=== PATIENT | female | born 1985 | race Caucasian/White ===

== ENCOUNTER 2020-01-01 12:02 | Inpatient (IN) | payer OTHER, SELFPAY ==
[2020-01-01 12:42] LABS: #Basophils 0.1 thou/uL (0.0-0.2); #Eosinphils 0.2 thou/uL (0.0-0.7); #Lymphocytes 3.3 thou/uL (1.20-3.40); #Monocytes 0.6 thou/uL (0.11-0.59); #Neutrophils 7.9 thou/uL (1.40-6.50); %Basophils 0.6 % (0.0-1.0); %Eosinophils 1.3 % (0.0-10.0); %Lymphocytes 27.4 % (21.0-51.0); %Monocytes 5.2 % (0.0-10.0); %Neutrophils 65.5 % (42.0-75.0); Hemoglobin 14.2 g/dL (12.0-16.0); Mean Corpuscular HGB CONC 32.2 g/dL (32.0-36.0); Mean Corpuscular Hemoglobin 30.5 pg (27.0-31.0); Mean Corpuscular Volume 94.6 fL (78.0-98.0); Platelet Count 324 thou/uL (130-400); RBC Distribution Width 11.8 % (11.5-14.5); Red Blood Cell (RBC) Count 4.68 mill/uL (4.20-5.40)
[2020-01-01 12:48] LABS: BHCG - Serum Negative (NEGATIVE); Pregs Control Background? CLEAR/WHITE (CLR/WHITE); Pregs Control Bar Appear? YES (CONTROL BAR)
[2020-01-01 13:10] LABS: ALT (SGPT) 31 U/L (8-55); AST (SGOT) 20 U/L (5-34); Albumin 4.4 g/dL (3.5-5.0); Alkaline Phosphatase 88 U/L (40-110); Anion Gap 12 mmol/L (10-20); BUN (Urea Nitrogen) 11 mg/dL (7.0-18.7); Bilirubin, Total 0.5 mg/dL (0.2-1.2); Calc. Creatinine Clearance 0 mL/min (70-130); Calcium 9.4 mg/dL (7.8-10.44); Carbon Dioxide 26 mmol/L (22-29); Chloride 102 mmol/L (98-107); Estimated GFR-MDRD 73; Globulin 3.2 g/dL (2.4-3.5); Glucose 185 mg/dL (70-105); Lipase 28 U/L (8-78); Potassium 4.4 mmol/L (3.5-5.1); Protein, Total 7.6 g/dL (6.0-8.3); Sodium 136 mmol/L (136-145)
[2020-01-01] MEDS ORDERED: Fentanyl 100 MCG/2 ML VIAL ONE (14:41)
[2020-01-01] MEDS ORDERED: Ondansetron PF 4 MG/2 ML Vial ONE (14:41)
[2020-01-01] MEDS ORDERED: Morphine 4 MG/ML VIAL ONE ×2 (15:27→17:27)
[2020-01-01] MEDS ORDERED: Piperacillin/Tazobactam 4.5 GM VIAL ONE (15:53)
--- NOTE | 2020-01-01 15:57 | CT ---
CT Abdomen Pelvis WO Con: 01/01/2020 3:51 PM HISTORY: Abdominal pain and diverticulitis COMPARISON: 12/31/2019 TECHNIQUE: Multiple contiguous axial images were obtained and a CT of the abdomen and pelvis without IV contrast . Coronal and sagittal reformats were performed. FINDINGS: This examination is limited for the evaluation of solid organs and vascular structures due to the lac k of intravenous contrast. Lower Chest: within normal limits. Abdomen: Liver: Diffuse fatty infiltration Bile Ducts: Normal caliber. Gallbladder: Removed Pancreas: within normal limits. Spleen: within normal limits. Adrenals: within normal limits. Kidneys: within normal limits. Pelvis: Reproductive Organs: Status post hysterectomy. Ureters: within normal limits. Bladder: within normal limits. Bowel: Normal caliber. Scattered diverticula are seen in the colon. An anastomotic staple line is see n in the sigmoid colon. Mesenteric Lymph Nodes: No enlarged mesenteric lymph nodes. Peritoneum: No ascites or free air, no fluid collection. Vessels: Normal caliber aorta Retroperitoneum: within normal limits. Abdominal Wall: within normal limits. Bones: Unremarkable. IMPRESSION: 1. Stable diverticulosis without evidence of acute diverticulitis. No change has occurred since the e xam from yesterday. 2. Fatty liver
[2020-01-01 17:44] LABS: Bilirubin Negative (Negative); Blood, Urine Negative (Negative); Clarity Clear (Clear); Glucose, Urine (Dipstick) 500 mg/dL (Negative); Ketone, Urine Negative (Negative); Leukocyte Negative Leu/uL (Negative); Nitrite Negative (Negative); Protein, Urine (Dipstick) Negative (Neg-Trace); Specific Gravity, Urine 1.022 (1.002-1.036); Urobilinogen Normal mg/dL (Less than 2)
[2020-01-01] MEDS ORDERED: Ondansetron PF 4 MG/2 ML Vial IVP PRN (18:08)
[2020-01-01] MEDS ORDERED: Acetaminophen 325 MG TAB PO PRN (18:08)
--- NOTE | 2020-01-01 18:35 | PDOC.HHP ---
Hospitalist HPI - History of Present Illness abdominal pain History of Present Illness: Mrs. Guadarrama is a 34 year-old female with a PMHx of T2DM on metformin, chronic diverticulitis s/p bowel resection in 2017, who presented to the ED on 01/01/20 with acute abdominal pain. Pain started 5 days ago and is described as sharp and crampy, mostly localized to the LLQ. Pain is associated with diarrhea and bloody stools. Pt reports lots of mucus and intermittent streaks of dark maroon blood in her stool which she feels is more prominent when her abdominal pain is worse. Pt presented to [place] [facility] yesterday where she was discharged on cipro/flagyl, but her abdominal pain acutely worsened overnight and so she presented to [facility]. Pt denies N/V. Denies dysuria. Denies CP, SOB, or palpitations. Denies dizziness or lightheadedness. Pt states she has a long history of abdominal pain and recurrent bouts of diverticulitis with approximately 6-7 flare ups per yeat over the past 10 years. Pt recently (10 days ago) moved from [place] where she follows with a surgeon and GI for this. Her surgeons in [place] were planning on doing a colostomy in the upcoming months. In ED workup included a CT abdomen pelvis which showed diffuse diverticulosis without diverticulitis stable from scan performed at [facility] the prior day. WBC 12.0, H/H 14.2/44, BUN 11/0.88. Na 136, K 4.4. Lipase 28, bhcg negative. Pt received Zosyn 4.5 mg, morphine, zofran, and 1L NS in the ED. Vital signs were 124/75, 75, 14, 100% on RA. Hospitalist ROS - Review of Systems Constitutional: denies: fever, chills, sweats, weakness, malaise, other Eyes: denies: pain, vision change, conjunctivae inflammation, eyelid inflammation, redness, other ENT: denies: ear pain, ear discharge, nose pain, nose discharge, nose congestion, mouth pain, mouth swelling, throat pain, throat swelling, other Respiratory: denies: cough, dry, shortness of breath, hemoptysis, SOB with excertion, pleuritic pain, sputum, wheezing, other Cardiovascular: denies: chest pain, palpitations, orthopnea, paroxysmal noc. dyspnea, edema, light headedness, other Gastrointestinal: reports: abdominal pain, diarrhea, hematochezia. denies: nausea, vomiting, constipation, melena, other Genitourinary: denies: dysuria, frequency, incontinence, hematuria, retention, other Musculoskeletal: denies: neck pain, shoulder pain, arm pain, back pain, hand pain, leg pain, foot pain, other Skin: denies: rash, lesions, jeff, bruising, other Neurological: denies: weakness, numbness, incoordination, change in speech, confusion, seizures, other - Medication Medications: Home medications include: 1. Metformin 500 mg BID Patient is SEVERELY allergic to Iodine and IV contrast, which caused a cardiac arrest in the past. Hospitalist History - Past Medical History Source: patient Gastrointestinal: reports: Diverticulosis Endocrine: reports: Diabetes - Past Surgical History Other Surgical History: Colon resection in 2017 - Family History Family History: reports: no pertinent history - Social History Smoking Status: Former smoker Tobacco Type: cigarettes Alcohol: reports: Rare Drugs: reports: none Living Situation: With Family Activity level: independent ambulation - Exam General Appearance: NAD, awake alert Eye: PERRL, anicteric sclera ENT: normocephalic atraumatic, no oropharyngeal lesions, moist mucosa Neck: supple, symmetric, no JVD, no thyromegaly, no lymphadenopathy, no carotid bruit Heart: RRR, no murmur, no gallops, no rubs, normal peripheral pulses Respiratory: CTAB, no wheezes, no rales, no ronchi, normal chest expansion, no tachypnea, normal percussion Gastrointestinal: soft, non-distended, no palpable masses, no guarding, no rigidity, tender to palpation Gastrointestinal - other findings: hyperactive bowel sounds Extremities: no cyanosis, no clubbing, no edema Skin: normal turgor, no lesions, no rashes Neurological: cranial nerve grossly intact, normal sensation to touch, no weakness, no focal deficits, no new deficit Musculoskeletal: normal tone, normal strength, no muscle wasting Psychiatric: normal affect, normal behavior, A&O x 3 Hospitalist Results - Labs Result Diagrams: 01/01/20 12:32 01/01/20 12:32 Lab results: WBC 12.0 thou/uL (4.8-10.8) H 01/01/20 12:32 Hgb 14.2 g/dL (12.0-16.0) 01/01/20 12:32 Hct 44.2 % (36.0-47.0) 01/01/20 12:32 MCV 94.6 fL (78.0-98.0) 01/01/20 12:32 Plt Count 324 thou/uL (130-400) 01/01/20 12:32 Neutrophils % 65.5 % (42.0-75.0) 01/01/20 12:32 Sodium 136 mmol/L (136-145) 01/01/20 12:32 Potassium 4.4 mmol/L (3.5-5.1) 01/01/20 12:32 Chloride 102 mmol/L (98-107) 01/01/20 12:32 Carbon Dioxide 26 mmol/L (22-29) 01/01/20 12:32 BUN 11 mg/dL (7.0-18.7) 01/01/20 12:32 Creatinine 0.88 mg/dL (0.6-1.1) 01/01/20 12:32 Glucose 185 mg/dL (70-105) H 01/01/20 12:32 Calcium 9.4 mg/dL (7.8-10.44) 01/01/20 12:32 Total Bilirubin 0.5 mg/dL (0.2-1.2) 01/01/20 12:32 AST 20 U/L (5-34) 01/01/20 12:32 ALT 31 U/L (8-55) 01/01/20 12:32 Alkaline Phosphatase 88 U/L (40-110) 01/01/20 12:32 Serum Total Protein 7.6 g/dL (6.0-8.3) 01/01/20 12:32 Albumin 4.4 g/dL (3.5-5.0) 01/01/20 12:32 Lipase 28 U/L (8-78) 01/01/20 12:32 Urine Ketones Negative mg/dL (Negative) 01/01/20 16:31 Urine Blood Negative (Negative) 01/01/20 16:31 Urine Nitrite Negative (Negative) 01/01/20 16:31 Ur Leukocyte Esterase Negative Dania/uL (Negative) 01/01/20 16:31 Hospitalist H&P A/P - Problem (1) Diverticulitis Code(s): K57.92 - DVTRCLI OF INTEST, PART UNSP, W/O PERF OR ABSCESS W/O BLEED Status: Acute (2) Type 2 diabetes mellitus Status: Acute (3) Bloody stool Code(s): K92.1 - MELENA Status: Acute - Plan Plan: Diverticulitis: Mrs. Guadarrama is a 34F with PMHx of T2DM, chronic diverticulitis s/p resection in 2017 who presented with 5 days of worsening LLQ pain associated with diarrhea and bloody stools. Abdomen TTP, no guarding. CT abdomen showed diffuse diverticulosis, no signs of abscess, perforation, or obstruction. WBC 12.0, lipase 28, BUN/Cr 11/0.88. Pt received one dose of zosyn in the ED. PLAN: -IV flagyl 500 mg TID, IV ceftriaxone 1 g daily -Clear liquid diet -Stool studies -GI consult -Pain control with morphine Bloody stools: Abdominal pain associated with cramping and dark red stools. H/H stable at 14.2/44.2. Pt denies dizziness/lightheadedness. Pt has been previously w/u for IBD in [place] which she reports was negative. PLAN: -Stool studies, fecal lactoferrin -Trend H/H -Continue to monitor Type 2 Diabetes Mellitus: Hx of T2DM on home metformin. Will hold home metformin as pt is NPO. PLAN: -Hold home metformin -Q6hr glucose checks DVT Prophylaxis: SCDs, encourage ambulation FULL CODE - Patient has designated her , Fredo Guadarrama as her medical decision maker Case discussed with attending physician, Dr. bAdul.
[2020-01-01] MEDS ORDERED: Morphine 2 MG/ML VIAL SLOW IVP PRN (19:48)
[2020-01-01 21:05] VITALS: BMI 51.9
[2020-01-01] MEDS ORDERED: Dextrose 50% Abboject 50 ML SYRINGE SLOW IVP PRN (21:08)
[2020-01-01] MEDS ORDERED: Dextrose 5% in Water 1,000 ML IV PRN (21:08)
[2020-01-01] MEDS: metroNIDAZOLE 500 MG in Premix Bag 1 BAG IVPB SCH (21:09)
[2020-01-01 21:30] LABS: Lactic Acid 2.3 mmol/L (0.5-2.2)
[2020-01-01] MEDS: Morphine 4 MG/ML VIAL SLOW IVP PRN (23:51)
[2020-01-02] MEDS: Morphine 4 MG/ML VIAL SLOW IVP PRN ×5 (03:46→20:33)
[2020-01-02] MEDS: metroNIDAZOLE 500 MG in Premix Bag 1 BAG IVPB SCH ×3 (05:14→22:28)
[2020-01-02 06:07] LABS: #Basophils 0.1 thou/uL (0.0-0.2); #Eosinphils 0.2 thou/uL (0.0-0.7); #Lymphocytes 3.7 thou/uL (1.20-3.40); #Monocytes 0.7 thou/uL (0.11-0.59); %Basophils 0.6 % (0.0-1.0); %Eosinophils 1.7 % (0.0-10.0); %Lymphocytes 34.8 % (21.0-51.0); %Monocytes 6.8 % (0.0-10.0); %Neutrophils 56.2 % (42.0-75.0); Hemoglobin 12.3 g/dL (12.0-16.0); Mean Corpuscular HGB CONC 31.6 g/dL (32.0-36.0); Mean Corpuscular Volume 98.3 fL (78.0-98.0); Mean Platelet Volume 8.1 fL (7.4-10.4); Platelet Count 258 thou/uL (130-400); RBC Distribution Width 11.9 % (11.5-14.5); Red Blood Cell (RBC) Count 3.97 mill/uL (4.20-5.40); White Blood Cell (WBC) Count 10.6 thou/uL (4.8-10.8)
[2020-01-02] MEDS: cefTRIAXone\\ROCEPHIN 1 GM in Sodium Chloride 0.9% 100 ML IVPB SCH (06:21)
[2020-01-02 06:33] LABS: Anion Gap 15 mmol/L (10-20); BUN (Urea Nitrogen) 10 mg/dL (7.0-18.7); Calc. Creatinine Clearance 213 mL/min (70-130); Calcium 8.1 mg/dL (7.8-10.44); Carbon Dioxide 20 mmol/L (22-29); Chloride 107 mmol/L (98-107); Estimated GFR-MDRD 82; Glucose 122 mg/dL (70-105); Potassium 4.4 mmol/L (3.5-5.1); Sodium 138 mmol/L (136-145)
[2020-01-02] MEDS ORDERED: cefTRIAXone Sodium 1,000 MG in Syringe 0 ML IVPB SCH (09:00)
[2020-01-02 12:46] LABS: SARS-CoV-2 MS2 Positive; SARS-CoV-2 N Gene Negative; SARS-CoV-2 S Gene Negative; SARS-CoV-2 by NAA Not Detected (NotDetected); SARS-CoV-2 orf1ab Negative
--- NOTE | 2020-01-02 15:04 | PDOC.HOSPP ---
- Subjective Encounter Date: 01/02/20 Encounter Time: 09:00 Subjective: The patient states she still has abdominal pain in the LLQ. She states it is about the same. Typically when she has diverticulitis attacks, she is in the hospital for about 7 days before it subsides . She had diarrhea yesterday but had no BM today. She said her stool smelled like "raw sewage." She states she had some blood in her stools. She denies nausea or vomiting. She did not eat outside recently. She has no family history of IBD. She does not take NSAIDS or aspirin. SHe has had history of bowel resection. One surgeon three years ago recommended a colostomy but she refused The patient recently moved from [place], has no doctor here yet. - Objective Vital Signs & Weight: Vital Signs (12 hours) Temp Pulse Resp BP Pulse Ox 01/02/20 11:16 97.9 F 80 20 122/82 95 01/02/20 07:15 97.9 F 74 18 121/74 98 01/02/20 04:15 97.8 F 75 16 107/70 94 L Weight Weight 302 lb 9.6 oz Result Diagrams: 01/02/20 05:54 01/02/20 05:54 Additional Labs: Accuchecks 01/02/20 01/02/20 01/01/20 11:25 05:19 22:16 POC Glucose 148 H 112 H 146 H Hospitalist ROS - Medication Medications: Active Medications Generic Name Dose Route Start Last Admin Trade Name Freq PRN Reason Stop Dose Admin Metronidazole 500 mg/ Device 100 mls @ 100 mls/hr 01/01/20 22:00 01/02/20 14:43 IVPB 100 mls Q8HR QUAN Administration Ceftriaxone Sodium 1 gm/ 100 mls @ 200 mls/hr 01/02/20 06:00 01/02/20 06:21 Sodium Chloride IVPB 100 mls Q24HR QUAN Administration Morphine Sulfate 2 mg 01/01/20 19:48 01/01/20 19:56 Morphine 2 Mg/Ml Vial SLOW IVP 2 mg Q4H PRN Administration Moderate to Severe Pain (6-10) Morphine Sulfate 4 mg 01/01/20 19:34 01/02/20 12:15 Morphine 4 Mg/Ml Vial SLOW IVP 4 mg Q4H PRN Administration Severe Pain (7-10) - Exam General Appearance: NAD, awake alert Eye: PERRL, anicteric sclera ENT: normocephalic atraumatic, no oropharyngeal lesions Neck: no JVD Heart: RRR, no murmur, no gallops, no rubs Respiratory: CTAB, no wheezes, no rales, no ronchi Gastrointestinal: soft, non-tender, non-distended, normal bowel sounds Extremities: no cyanosis, no clubbing, no edema Skin: normal turgor, no lesions, no rashes Hosp A/P - Plan CT abdomen: stable diverticulosis without diverticulitis. Fatty liver This is a 34 year old female who presented with diverticulosis and lower GI bleed #Abdominal pain with history of diverticulosis #Lower GI bleed #Diarrhea - patient had CT abdomen which showed no acute diverticulitis. SHe was placed on IV ceftriaxone and flagyl - she has had some bloody stools, C diff pending - GI has been consulted, transition to clear liquid diet and plan for colonoscopy tomorrow #Fatty liver - patient has lost 30 pounds in past three months - avoid alcohol and monitor periodically as outpatient #Type I diabetes - insulin sliding scale
[2020-01-02] MEDS ORDERED: Dextrose 5% in Water 1,000 ML IV PRN (16:03)
[2020-01-02] MEDS ORDERED: Dextrose 50% Abboject 50 ML SYRINGE SLOW IVP PRN (16:03)
[2020-01-02] MEDS: HumaLOG 300 UNITS/3 ML VIAL SC PRN (16:21)
[2020-01-02] MEDS ORDERED: GoLYTELY 4,000 ml Bottle PO SCH (17:00)
[2020-01-03] MEDS: Morphine 4 MG/ML VIAL SLOW IVP PRN ×6 (00:47→21:55)
[2020-01-03] MEDS: cefTRIAXone\\ROCEPHIN 1 GM in Sodium Chloride 0.9% 100 ML IVPB SCH (05:56)
[2020-01-03] MEDS: metroNIDAZOLE 500 MG in Premix Bag 1 BAG IVPB SCH ×3 (07:14→21:54)
--- NOTE | 2020-01-03 07:36 | CON ---
DATE OF CONSULTATION: 01/02/2020 REASON FOR CONSULTATION: Abdominal pain, diarrhea, hematochezia, and passing blood-stained mucus per rectum. HISTORY OF PRESENT ILLNESS: Ms. Mignon Guadarrama is 34-year-old female, who moved to [place] approximately 11 days ago from [place]. Apparently, her in-laws live in [place]. The patient developed abdominal pain approximately 6 days ago. The pain is across lower abdomen predominantly in left lower quadrant. She had no fever or chills. She also describes diarrhea off and on, some blood-stained mucus per rectum. The patient has history of colon resection in 2017 for recurrent diverticulitis. The patient tells me she has had at least 6-7 episodes of diverticulitis every year. She saw a surgeon and plan is being made to repeat surgery and removal of part of the colon. The plan was to have surgery sometime after the holidays. The patient was doing well until about 6 days ago and developed abdominal pain. She went to the ER to [facility] and was found to have what appears to be evidence of diverticulitis. She was sent home on some antibiotic, but she came back to the ER because of some abdominal pain. She was hospitalized because of above reasons. The patient tells me she has had some rectal bleeding and off and on diarrhea. She also has passed some blood-stained mucus per rectum. Her last colonoscopy did not reveal any colitis as per the patient. This was done just before her segmental colon resection 3 years ago. Although she has had intermittent bleeding, her blood count is basically stable. On admission, WBC was 12,000, hemoglobin 14.2, hematocrit 44.2. Today, dropped to 12.3, hematocrit 39, which is within normal limits. At the present time, she appears comfortable, in no distress. Denies any nausea, vomiting, but upper abdominal pain over the left colon. No other relevant history. ALLERGIES: IODINE. SOCIAL HISTORY: The patient is . Does not smoke or drink alcohol. MEDICAL ILLNESS: 1. Obesity. 2. Diabetes mellitus. 3. Recurrent diverticulitis with previous surgery in 2017. 4. Hysterectomy for heavy menstrual bleeding and abnormal Pap smear. 5. Appendectomy. 6. Laparoscopic cholecystectomy. FAMILY HISTORY: Mother has schizophrenia, but she has no contact with her father. No family history of any cancer, heart disease, or lung disease. MEDICATIONS: List which include: 1. Ceftriaxone. 2. Glucagon. 3. Metronidazole. 4. Morphine sulfate. 5. Zofran. 6. IV fluids. REVIEW OF SYSTEMS: CONSTITUTIONAL: No history of fever or chills. No weight loss. Had good exercise tolerance. HEAD: No chronic headache. No dizziness. EYES: No diplopia. No impaired vision. EARS: No hearing loss. NOSE: No nosebleed. THROAT: No sore throat or dysphagia. NECK: No stiffness or any limitation of movement. BREASTS: No breast masses or any lumps. No discharge from the nipple. LUNGS: No chronic coughing, hemoptysis, or dyspnea. CARDIOVASCULAR SYSTEM: No chest pain. No palpitation. No dyspnea, orthopnea, or PND. GI: As in history of present illness. : No dysuria or hematuria. MUSCULOSKELETAL: Not known. NEUROLOGIC: Not known. ENDOCRINE: Not known. HEMATOLOGICAL: Not known. PHYSICAL EXAMINATION: GENERAL: She appears comfortable. She is obese, in no distress. VITAL SIGNS: Actually very stable. Afebrile. Her pulse is 80, blood pressure 122/82. HEENT: Conjunctivae are clear. NECK: Supple. CARDIOVASCULAR SYSTEM: Normal heart sounds. LUNGS: Clear to auscultation. ABDOMEN: Soft. Abdomen is mildly protuberant, but very soft and no peritoneal signs seen. She is tender over the left lower quadrant. No rebound or guarding. Bowel sounds normal. EXTREMITIES: Reveal no edema. LABORATORY DATA: WBC 12,000 dropping to 10,600 today, hemoglobin is 14.2, hematocrit 44.2, MCV 94.6, platelet count 324,000, polymorphs 65, no bandemia, lymphocytes 27, monocytes 5. Chemistry panel; normal lytes, BUN is 10, creatinine 0.80, glucose 122, calcium 8.1. The abdominal CAT scan does show evidence of diverticulosis, but no diverticulitis seen. She also had fatty liver on CAT scan, but no inflammatory changes in the colon. CLINICAL IMPRESSION: 1. A 34-year-old female with previous colon resection for diverticulitis in 2017. Present abdominal pain and what appears to be diverticulitis but however the CAT scan shows no evidence of diverticulitis. She has a hematochezia, diarrhea, and blood-stained mucus from rectum. I am not sure she has . 2. Obesity. 3. Diabetes mellitus. 4. Previous hysterectomy complete. 5. Previous appendectomy. 6. Cholecystectomy. PLAN: 1. Clear liquid diet. 2. We will plan for colonoscopy tomorrow and make further recommendation. In the meantime, I would recommend continue antibiotics. Job ID: [id number]
[2020-01-03 08:08] LABS: ALT (SGPT) 34 U/L (8-55); AST (SGOT) 28 U/L (5-34); Albumin 3.8 g/dL (3.5-5.0); Alkaline Phosphatase 74 U/L (40-110); Anion Gap 16 mmol/L (10-20); BUN (Urea Nitrogen) 8 mg/dL (7.0-18.7); Bilirubin, Total 0.4 mg/dL (0.2-1.2); Calc. Creatinine Clearance 230 mL/min (70-130); Calcium 8.5 mg/dL (7.8-10.44); Carbon Dioxide 19 mmol/L (22-29); Chloride 107 mmol/L (98-107); Estimated GFR-MDRD 89; Globulin 2.8 g/dL (2.4-3.5); Glucose 142 mg/dL (70-105); Potassium 4.3 mmol/L (3.5-5.1); Protein, Total 6.6 g/dL (6.0-8.3); Sodium 138 mmol/L (136-145)
[2020-01-03 09:21] LABS: Mean Corpuscular HGB CONC 33.4 g/dL (32.0-36.0); Mean Corpuscular Hemoglobin 32.3 pg (27.0-31.0); Mean Corpuscular Volume 96.9 fL (78.0-98.0); Mean Platelet Volume 8.3 fL (7.4-10.4); Platelet Count 253 thou/uL (130-400); RBC Distribution Width 11.8 % (11.5-14.5); Red Blood Cell (RBC) Count 4.03 mill/uL (4.20-5.40); White Blood Cell (WBC) Count 8.3 thou/uL (4.8-10.8)
[2020-01-03] MEDS ORDERED: PROPOFOL 200 MG/20 ML VIAL ONE (10:39)
--- NOTE | 2020-01-03 11:48 | PDOC.HOSPP ---
- Subjective Encounter Date: 01/03/20 Encounter Time: 09:30 Subjective: still has abd pain in left lower quadrant no nausea is npo for colonoscopy today - Objective Vital Signs & Weight: Vital Signs (12 hours) Temp Pulse Resp BP Pulse Ox 01/03/20 08:14 97.6 F 01/03/20 07:52 75 16 104/67 96 01/03/20 04:00 97.7 F 75 20 141/91 H 97 Weight Weight 302 lb 9.6 oz I&O: 01/02/20 01/03/20 01/04/20 06:59 06:59 06:59 Intake Total 1335 Balance 1335 Result Diagrams: 01/03/20 09:10 01/03/20 07:10 Additional Labs: Accuchecks 01/03/20 01/02/20 01/02/20 05:56 20:35 15:58 POC Glucose 121 H 123 H 214 H Hospitalist ROS - Medication Medications: Active Medications Generic Name Dose Route Start Last Admin Trade Name Freq PRN Reason Stop Dose Admin Metronidazole 500 mg/ Device 100 mls @ 100 mls/hr 01/01/20 22:00 01/03/20 07:14 IVPB 100 mls Q8HR QUAN Administration Ceftriaxone Sodium 1 gm/ 100 mls @ 200 mls/hr 01/02/20 06:00 01/03/20 05:56 Sodium Chloride IVPB 100 mls Q24HR QUAN Administration Insulin Human Lispro 0 units 01/02/20 16:03 01/02/20 16:21 Humalog 300 Units/3 Ml Vial SC 3 unit .MILD SLIDING SCALE PRN Administration Mild Correctional Scale Morphine Sulfate 2 mg 01/01/20 19:48 01/01/20 19:56 Morphine 2 Mg/Ml Vial SLOW IVP 2 mg Q4H PRN Administration Moderate to Severe Pain (6-10) Morphine Sulfate 4 mg 01/01/20 19:34 01/03/20 10:16 Morphine 4 Mg/Ml Vial SLOW IVP 4 mg Q4H PRN Administration Severe Pain (7-10) - Exam General Appearance: awake alert Eye: PERRL, anicteric sclera ENT: no oropharyngeal lesions, moist mucosa Neck: supple, no JVD Heart: RRR, no murmur Respiratory: no wheezes, no rales Gastrointestinal: soft, non-distended, normal bowel sounds, no guarding, no rigi dity Extremities: no cyanosis, no edema Neurological: cranial nerve grossly intact, no focal deficits Psychiatric: normal affect, A&O x 3 Hosp A/P (1) Diverticulitis Code(s): K57.92 - DVTRCLI OF INTEST, PART UNSP, W/O PERF OR ABSCESS W/O BLEED Status: Suspected (2) Abdominal pain Code(s): R10.9 - UNSPECIFIED ABDOMINAL PAIN Status: Acute Qualifiers: Abdominal location: left lower quadrant Qualified Code(s): R10.32 - Left lower quadrant pain (3) Morbid obesity with BMI of 50.0-59.9, adult Code(s): E66.01 - MORBID (SEVERE) OBESITY DUE TO EXCESS CALORIES; Z68.43 - BODY MASS INDEX (BMI) 50.0-59.9, ADULT Status: Chronic (4) Bloody stool Code(s): K92.1 - MELENA Status: Acute (5) Type 2 diabetes mellitus Status: Chronic Qualifiers: Diabetes mellitus terminologist insulin use: without snf use - Plan is on ceftriaxone and flagyl for colonoscopy today morhpine prn to ambulate in [facility]
[2020-01-03] MEDS ORDERED: Fentanyl 100 MCG/2 ML VIAL ONE (11:53)
[2020-01-03] MEDS ORDERED: Promethazine HCl 25 MG/ML VIAL SLOW IVP PRN (11:56)
[2020-01-03] MEDS ORDERED: Promethazine HCl 25 MG/ML VIAL IM PRN (11:56)
[2020-01-03] MEDS ORDERED: Ondansetron HCl/PF 4 MG/2 ML Vial IVP PRN (11:56)
[2020-01-03] MEDS: HumaLOG 300 UNITS/3 ML VIAL SC PRN (18:28)
[2020-01-04] MEDS: Morphine 4 MG/ML VIAL SLOW IVP PRN ×2 (02:30→06:34)
[2020-01-04] MEDS: metroNIDAZOLE 500 MG in Premix Bag 1 BAG IVPB SCH (05:30)
[2020-01-04] MEDS: HumaLOG 300 UNITS/3 ML VIAL SC PRN (05:36)
[2020-01-04] MEDS: cefTRIAXone\\ROCEPHIN 1 GM in Sodium Chloride 0.9% 100 ML IVPB SCH (06:35)
[2020-01-04 12:17] VITALS: BP 157/86; TEMP 97.3
--- NOTE | 2020-01-05 13:55 | DIS ---
DATE OF ADMISSION: 01/01/2020 DATE OF DISCHARGE: 01/04/2020 DISCHARGE DISPOSITION: Home. PRIMARY DISCHARGE DIAGNOSIS: Initial suspicion for diverticulitis with abdominal pain. SECONDARY DISCHARGE DIAGNOSES: Morbid obesity, type 2 diabetes. PROCEDURES DONE DURING HOSPITALIZATION: The patient has had colonoscopy done on 01/03/[address] Kaye. The official results are pending at the time of this dictation. CT of the abdomen and pelvis showed stable diverticulosis. No sign of acute diverticulitis. Fatty liver was seen. Stool for C diff, Campylobacter antigen, shiga toxin 1 and 2 were negative. Serial H and H's remained stable around 13 and 39, platelet count 253, MCV is 96. BUN 8, creatinine 0.7. Albumin is 3.8. Liver enzymes are within normal limits. Serum test was negative. COVID-19 PCR was not detected on 01/01/2020. DISCHARGE MEDICATIONS: 1. Metformin 500 mg p.o. twice daily. 2. Bentyl 20 mg p.o. four times daily p.r.n. for abdominal pain/colic. ALLERGIES: TO IODINE. DISCHARGE PLAN: The patient to follow up at [facility] in a week. BRIEF COURSE DURING HOSPITALIZATION: The patient initially got admitted on the with complaints of left lower quadrant abdominal pain. She also complained of having diarrhea with bloody stools. In view of this history and prior multiple episodes of diverticulitis, the patient was admitted to medical floor. She has moved from [place] to [facility] area. The patient also has had prior history of colon resection done in 2017 apparently in [facility]. She was placed on broad-spectrum IV antibiotics and has had stool studies done. Her stool came back negative for shiga toxin 1 and 2 and C diff. She has had consultation with Dr. Kaye. A colonoscopy done, unofficial report showed no active inflammation as such in the colon. Her diarrhea has completely resolved. She is tolerating oral solid diet. The patient is also ambulating well. The patient was counseled with regard to heart healthy diet and losing weight with exercise and good nutrition. She is hemodynamically stable and will be shortly discharged home. She has moved from [facility] and is advised to follow up at [facility] for initial screening and likely followups. Please note, I have seen and examined the patient on the day of discharge. Job ID: [id number] MTDD
--- NOTE | 2020-01-06 10:44 | OP ---
DATE OF PROCEDURE: 01/03/2020 OPERATIVE PROCEDURE: Colonoscopy. PREOPERATIVE DIAGNOSIS: A 34-year-old female with abdominal pain, diarrhea, hematochezia, and passing blood-stained mucus per rectum. The patient is undergoing colonoscopy. POSTOPERATIVE DIAGNOSES: 1. Diffuse colonic diverticular disease. No diverticulitis or any colitis seen. The mucosa appears normal. Healthy anastomosis of the left colon. 2. Hemorrhoids. DESCRIPTION OF PROCEDURE: The patient was placed rectal exam was done. The scope was advanced on rectal exam. The patient had pockets of semi-solid stool in the rectum. The mucosa appears normal throughout the colon. There is no colitis seen. There is no diverticulitis seen. The patient apparently had a previous sigmoid resection. The anastomotic area appears healthy. The patient had diffuse colonic diverticula from the sigmoid colon all the way to withdrawal of the scope from the cecum to ascending colon, hepatic flexure, transverse colon, splenic flexure, no other pathology seen except for scattered diverticula. The retroflexion of scope in the rectum showed hemorrhoids-hypertrophic papilla. OVERALL IMPRESSION: Abdominal pain symptoms. She abdominal pain, diarrhea . RECOMMENDATION: . Job ID: [id number]
--- NOTE | 2020-01-09 13:20 | PQF ---
CLINICAL DOCUMENTATION CLARIFICATION FORM: Dear : YINA BEASLEY MD Date / Time: 01/09/2020 Please exercise your independent, professional judgment in responding to the clarification form. Clinical indicators are provided on the bottom of this form for your review Please check appropriate box(es): [ ] Melena due to diverticular disease [ ] Melena due to hemorrhoids [ ] Other diagnosis (Please specify if any) [ x ] Unable to determine Physician Signature: Date/Time: For continuity of documentation, please document condition throughout progress notes and discharge summary. Thank You. To be completed by CDI/Coding staff for physician review: Present Clinical Indicators - Signs / Symptoms / Labs Results and Location in Medical Record [x ] Diffuse colonic diverticular disease. No diverticulitis or any colitis seen. Colonoscopy on 01/02 [ x ] Hemorrhoids Colonoscopy on 01/02 [ x ] Scope in the rectum showed hemorrhoids-hypertrohic papilla Colonoscopy on 01/02 [ x ] Hematochezia, passing blood stained mucus per rectum Colonoscopy on 01/02 [ x ] CT abdomen: stable diverticulosis without diverticulitis Hospital PN on 01/01 Present Risk Factors Results and Location in Medical Record [ x ] Recurrent bouts of diverticulitis with approximately 6-7 flare up over 10 yrs H&P on 12/31 [ ] [ ] [ ] Present Treatments Results and Location in Medical Record [ x] Colonoscopy Colonoscopy on 01/02 [ x ] Discharge medication: Bentyl 20 mg po for abdominal pain/colic Discharge summary on 01/04 [ ] [ ] CDS/Provider Relations Coordinator Signature: AAS Phone #: Date/Time: 01/09/2020 This is a permanent part of the Medical Record [facility]
== END 2020-01-04 12:24 | disposition home or self-care (01) | DRG 378 ==
LOC: ERS 12:02 → T4-B 17:24 → OBSVTOIN 17:24
PROVIDERS: ADMIT Student in an Organized Health Care Education/Training Program; ATTEND Student in an Organized Health Care Education/Training Program
PROC: 0DJD8ZZ Inspection of Lower Intestinal Tract, Via Natural or Artificial Opening Endoscopic (ICD-10-PCS; principal; 2020-01-03)
DX: K92.1 Melena (principal); Z68.43 Body mass index [BMI] 50.0-59.9, adult; E11.9 Type 2 diabetes mellitus without complications; K76.0 Fatty (change of) liver, not elsewhere classified; E66.01 Morbid (severe) obesity due to excess calories; Z20.828 Contact with and (suspected) exposure to other viral communicable diseases; K64.9 Unspecified hemorrhoids; K57.90 Diverticulosis of intestine, part unspecified, without perforation or abscess without bleeding; Z79.84 Long term (current) use of oral hypoglycemic drugs; Z87.891 Personal history of nicotine dependence; Z90.710 Acquired absence of both cervix and uterus; Z90.49 Acquired absence of other specified parts of digestive tract
CPT/HCPCS: 36415; 36416; 74176; 80048; 80053; 81003; 83605; 83630; 83690; 84703; 85025; 85027; 87045; 87046; 87324; 87427; 87449; 87635; 96361; 96365; 96375; 96376; G0378; J0696; J2270; J2405; J2543; J2704; J3010; J3490; U0003

== ENCOUNTER 2020-02-25 16:37 | Emergency (ER) | payer SELFPAY ==
[2020-02-25] MEDS ORDERED: Metoclopramide HCl 10 MG/2 ML VIAL ONE (17:19)
[2020-02-25] MEDS ORDERED: Morphine 4 MG/ML VIAL ONE ×3 (17:19→20:55)
--- NOTE | 2020-02-25 18:19 | CT ---
CT abdomen and pelvis noncontrast HISTORY: Left flank pain. COMPARISON: 01/01/2020. FINDINGS: Each renal collecting system, ureter, and urinary bladder are decompressed without stone ap parent. The gallbladder and appendix are surgically absent. Liver is diffusely hypodense. A hemostasis clip i s sagittally oriented within the central aspect of the right liver lobe. Possibly within a vascular structure. Small gas-filled diverticulum projects medially from the second portion of the duodenum. There is no evidence of bowel obstruction or inflammation. Postoperative changes of the sigmoid colon are apparent. Scattered diverticula without adjacent inflammation. IMPRESSION : No evidence of urinary tract obstruction or calcification. Diverticulosis. No evidence of diverticulitis. Postoperative findings are stable. Hepato-steatosis.
[2020-02-25 18:46] LABS: #Basophils 0.1 thou/uL (0.0-0.2); #Eosinphils 0.2 thou/uL (0.0-0.7); #Lymphocytes 4.3 thou/uL (1.20-3.40); #Monocytes 0.6 thou/uL (0.11-0.59); #Neutrophils 7.6 thou/uL (1.40-6.50); %Basophils 0.8 % (0.0-1.0); %Eosinophils 1.7 % (0.0-10.0); %Lymphocytes 33.6 % (21.0-51.0); Hemoglobin 13.5 g/dL (12.0-16.0); Mean Corpuscular HGB CONC 32.9 g/dL (32.0-36.0); Mean Corpuscular Hemoglobin 31.6 pg (27.0-31.0); Mean Corpuscular Volume 95.9 fL (78.0-98.0); Mean Platelet Volume 7.9 fL (7.4-10.4); Platelet Count 288 thou/uL (130-400); RBC Distribution Width 11.8 % (11.5-14.5); Red Blood Cell (RBC) Count 4.27 mill/uL (4.20-5.40); White Blood Cell (WBC) Count 12.8 thou/uL (4.8-10.8)
[2020-02-25 19:01] LABS: ALT (SGPT) 20 U/L (8-55); AST (SGOT) 16 U/L (5-34); Albumin 4.3 g/dL (3.5-5.0); Alkaline Phosphatase 78 U/L (40-110); Anion Gap 14 mmol/L (10-20); BUN (Urea Nitrogen) 16 mg/dL (7.0-18.7); Bilirubin, Total 0.3 mg/dL (0.2-1.2); Calc. Creatinine Clearance 0 mL/min (70-130); Calcium 9.4 mg/dL (7.8-10.44); Carbon Dioxide 25 mmol/L (22-29); Chloride 103 mmol/L (98-107); Estimated GFR-MDRD 78; Globulin 3.3 g/dL (2.4-3.5); Glucose 207 mg/dL (70-105); Lipase 27 U/L (8-78); Potassium 3.9 mmol/L (3.5-5.1); Protein, Total 7.6 g/dL (6.0-8.3); Sodium 138 mmol/L (136-145)
[2020-02-25 19:42] LABS: Bilirubin Negative (Negative); Blood, Urine Negative (Negative); Clarity Turbid (Clear); Glucose, Urine (Dipstick) Greater than 1000 mg/dL (Negative); Ketone, Urine Negative (Negative); Leukocyte Negative Leu/uL (Negative); Nitrite Negative (Negative); Protein, Urine (Dipstick) 10 mg/dL (Neg-Trace); Specific Gravity, Urine 1.028 (1.002-1.036); Urobilinogen Normal mg/dL (Less than 2); pH, Urine 5.5 (5.0-9.0)
[2020-02-25 19:43] LABS: Pregnancy Test - Urine (BHCG) Negative (Negative); Pregu Control Background? CLEAR/WHITE (CLR/WHITE); Pregu Control Bar Appear? YES (CONTROL BAR); Specific Gravity 1.028 (1.002-1.036)
== END 2020-02-25 20:48 | disposition home or self-care (01) ==
LOC: ERS 16:37
DX: R10.32 Left lower quadrant pain (principal); R10.813 Right lower quadrant abdominal tenderness; E11.9 Type 2 diabetes mellitus without complications; I10 Essential (primary) hypertension; Z79.4 Long term (current) use of insulin; Z79.899 Other long term (current) drug therapy
CPT/HCPCS: 74176; 80053; 81003; 81025; 83690; 85025; 87086; 96365; 96366; 96375; 96376; J2270; J2765

== ENCOUNTER 2020-03-02 22:34 | Inpatient (IN) | payer MEDICAID, SELFPAY ==
[2020-03-02] MEDS ORDERED: Morphine 4 MG/ML VIAL ONE (23:24)
[2020-03-02] MEDS ORDERED: Ondansetron PF 4 MG/2 ML Vial IVP PRN (23:27)
--- NOTE | 2020-03-03 00:20 | PDOC.BPN ---
- Brief Progress Note [id number] dictated
[2020-03-03] MEDS ORDERED: Dextrose 5% in Water 1,000 ML IV PRN (01:50)
[2020-03-03] MEDS ORDERED: Dextrose 50% Abboject 50 ML SYRINGE SLOW IVP PRN (01:50)
--- NOTE | 2020-03-03 01:59 | HP ---
CHIEF COMPLAINT: Abdominal pain. HISTORY OF PRESENT ILLNESS: Ms. Guadarrama is a 35-year-old female with past medical history of diverticulosis, hypertension, diabetes mellitus type 2, presented to an outside emergency room with abdominal pain, left lower quadrant that has been getting worse today. Workup in the emergency room, the patient had leukocytosis with WBC count of 14.1, lactic acid elevated at 3.3. The patient met septic criteria. The patient was given Zosyn and vancomycin. Lab work, the patient's CT showed diverticulosis, but no definite evidence of diverticulitis. The patient was given IV fluids, antibiotics. As per the patient, she has history of complicated diverticulitis in the past, requiring partial bowel resection. She is also scheduled to see a surgeon in the near future because of recurrent bouts of diverticulitis. The patient denies vomiting, fever, or chills. The patient is being admitted to the hospital for further management. PAST MEDICAL HISTORY: 1. Diverticulosis/diverticulitis. 2. Hypertension. 3. Diabetes mellitus, type 2. PAST SURGICAL HISTORY: 1. Appendectomy. 2. Cholecystectomy. 3. Hysterectomy. 4. Bowel resection. SOCIAL HISTORY: Denies smoking, alcohol drinking, or drug abuse. FAMILY HISTORY: Noncontributory. ALLERGIES: THE PATIENT IS ALLERGIC TO AZITHROMYCIN, FENTANYL, IODINATED CONTRAST, MACROBID, SULFA, ZOFRAN. HOME MEDICATIONS: See home medication reconciliation form for updated medications. REVIEW OF SYSTEMS: Review of 14 systems negative except what is mentioned in the history of present illness. PHYSICAL EXAMINATION: GENERAL: The patient is awake, alert, in moderate distress. VITAL SIGNS: Blood pressure 103/69, pulse 80, respiratory rate 18, temperature 98.9, oxygen saturation 98% on room air. HEAD AND NECK: Normocephalic, atraumatic. Neck is supple. No JVD. CHEST: Fair bilateral air entry. HEART: S1, S2 regular. ABDOMEN: Soft with left lower quadrant tenderness. Bowel sounds present. NEUROLOGIC: Awake, alert, oriented x3. No focal deficits. PSYCH: Unable to assess. EXTREMITIES: No clubbing or cyanosis. GENITOURINARY: No suprapubic tenderness. No flank tenderness. IMAGING STUDIES: As mentioned above in history of present illness. LABS: As mentioned above in history of present illness. ASSESSMENT: 1. Acute abdominal pain, ? Diverticulitis. 2. Sepsis. 3. Diabetes mellitus, type 2. 4. Hypertension. PLAN: 1. Admit. 2. Septic workup done in the ED. 3. IV antibiotics. 4. IV fluids. 5. Pain management. Close monitoring of vital signs and pulse ox if the patient requires high dose of IV opiates. 6. Reconcile home medications. 7. DVT prophylaxis as appropriate. 8. Expected length of stay, 2 midnights or more. Job ID: [id number]
[2020-03-03] MEDS: Morphine 2 MG/ML VIAL SLOW IVP PRN ×5 (03:50→20:34)
[2020-03-03] MEDS: Sodium Chloride 0.9% 1,000 ML IV SCH ×3 (05:33→13:17)
[2020-03-03] MEDS: metroNIDAZOLE 500 MG in Premix Bag 1 BAG IVPB SCH ×3 (06:07→22:53)
[2020-03-03] MEDS ORDERED: Promethazine HCl 12.5 MG in Sodium Chloride 0.9% 50 ML IVPB PRN (08:29)
[2020-03-03] MEDS: Famotidine/PF 20 mg/2ml Vial SLOW IVP SCH ×2 (09:12→20:40)
[2020-03-03] MEDS: Cefepime 2 GM in Sodium Chloride 0.9% 100 ML IVPB SCH ×2 (09:12→20:38)
[2020-03-03 09:26] LABS: #Basophils 0.1 thou/uL (0.0-0.2); #Eosinphils 0.3 thou/uL (0.0-0.7); #Lymphocytes 2.3 thou/uL (1.20-3.40); #Monocytes 0.6 thou/uL (0.11-0.59); #Neutrophils 5.6 thou/uL (1.40-6.50); %Basophils 1.2 % (0.0-1.0); %Eosinophils 2.9 % (0.0-10.0); %Lymphocytes 25.9 % (21.0-51.0); %Monocytes 6.5 % (0.0-10.0); %Neutrophils 63.6 % (42.0-75.0); Mean Corpuscular HGB CONC 33.4 g/dL (32.0-36.0); Mean Corpuscular Hemoglobin 31.6 pg (27.0-31.0); Mean Corpuscular Volume 94.7 fL (78.0-98.0); Mean Platelet Volume 7.3 fL (7.4-10.4); Platelet Count 227 thou/uL (130-400); RBC Distribution Width 11.6 % (11.5-14.5); Red Blood Cell (RBC) Count 4.12 mill/uL (4.20-5.40); White Blood Cell (WBC) Count 8.8 thou/uL (4.8-10.8)
[2020-03-03 09:44] LABS: ALT (SGPT) 26 U/L (8-55); AST (SGOT) 23 U/L (5-34); Albumin 3.9 g/dL (3.5-5.0); Alkaline Phosphatase 67 U/L (40-110); Anion Gap 14 mmol/L (10-20); BUN (Urea Nitrogen) 12 mg/dL (7.0-18.7); Bilirubin, Total 0.6 mg/dL (0.2-1.2); Calc. Creatinine Clearance 0 mL/min (70-130); Calcium 8.5 mg/dL (7.8-10.44); Carbon Dioxide 26 mmol/L (22-29); Chloride 106 mmol/L (98-107); Estimated GFR-MDRD Greater than 90; Globulin 2.9 g/dL (2.4-3.5); Glucose 122 mg/dL (70-105); Potassium 3.7 mmol/L (3.5-5.1); Protein, Total 6.8 g/dL (6.0-8.3); Sodium 142 mmol/L (136-145)
[2020-03-03 13:08] LABS: SARS-CoV-2 MS2 Positive; SARS-CoV-2 N Gene Negative; SARS-CoV-2 S Gene Negative; SARS-CoV-2 by NAA Not Detected (NotDetected); SARS-CoV-2 orf1ab Negative
[2020-03-03] MEDS ORDERED: traMADol HCl 50 MG TAB PO PRN ×2 (13:35)
[2020-03-04] MEDS: Sodium Chloride 0.9% 1,000 ML IV SCH ×2 (02:24→13:14)
[2020-03-04] MEDS: Morphine 2 MG/ML VIAL SLOW IVP PRN ×3 (02:25→12:19)
[2020-03-04 05:34] LABS: #Basophils 0.1 thou/uL (0.0-0.2); #Eosinphils 0.3 thou/uL (0.0-0.7); #Lymphocytes 2.4 thou/uL (1.20-3.40); #Monocytes 0.5 thou/uL (0.11-0.59); #Neutrophils 4.5 thou/uL (1.40-6.50); %Basophils 1.2 % (0.0-1.0); %Eosinophils 3.4 % (0.0-10.0); %Lymphocytes 30.8 % (21.0-51.0); %Monocytes 6.4 % (0.0-10.0); %Neutrophils 58.2 % (42.0-75.0); Hemoglobin 11.5 g/dL (12.0-16.0); Mean Corpuscular HGB CONC 31.9 g/dL (32.0-36.0); Mean Corpuscular Hemoglobin 30.3 pg (27.0-31.0); Mean Platelet Volume 7.5 fL (7.4-10.4); Platelet Count 243 thou/uL (130-400); RBC Distribution Width 11.5 % (11.5-14.5); Red Blood Cell (RBC) Count 3.78 mill/uL (4.20-5.40); White Blood Cell (WBC) Count 7.8 thou/uL (4.8-10.8)
[2020-03-04 05:54] LABS: Anion Gap 12 mmol/L (10-20); BUN (Urea Nitrogen) 9 mg/dL (7.0-18.7); Calc. Creatinine Clearance 0 mL/min (70-130); Calcium 8.3 mg/dL (7.8-10.44); Carbon Dioxide 24 mmol/L (22-29); Chloride 108 mmol/L (98-107); Estimated GFR-MDRD Greater than 90; Glucose 105 mg/dL (70-105); Potassium 3.6 mmol/L (3.5-5.1); Sodium 140 mmol/L (136-145)
[2020-03-04] MEDS: metroNIDAZOLE 500 MG in Premix Bag 1 BAG IVPB SCH ×3 (07:36→22:24)
[2020-03-04] MEDS: Famotidine/PF 20 mg/2ml Vial SLOW IVP SCH ×2 (07:38→21:32)
[2020-03-04] MEDS: Cefepime 2 GM in Sodium Chloride 0.9% 100 ML IVPB SCH ×2 (09:05→21:39)
--- NOTE | 2020-03-04 09:27 | PDOC.HOSPP ---
- Subjective Encounter Date: 03/04/20 Encounter Time: 10:00 Subjective: Patient with persistent abdominal pain. Helped with Morphine. Pain has been going on for 12 years, got very severe about 2 years ago and had a hemicolectomy due to "persistent inflammation and damage from the multiple episodes of diverticulitis." This didn't fix the problem, and patient was in talks with her surgeon to put in a diverting colostomy when she moved to [place]. Patient has an appointment with a colorectal surgeon in [place] in 1 month but patient states that she cannot last that long with the current pain. - Objective Vital Signs & Weight: Vital Signs (12 hours) Temp Pulse Resp BP Pulse Ox 03/04/20 08:00 98.4 F 67 20 175/90 H 99 03/04/20 03:45 16 03/04/20 00:20 98.3 F 72 16 155/67 H I&O: 03/03/20 03/04/20 03/05/20 06:59 06:59 06:59 Intake Total 400 Balance 400 Result Diagrams: 03/04/20 05:15 03/04/20 05:15 Additional Labs: Accuchecks 03/03/20 03/03/20 03/03/20 21:43 16:35 11:15 POC Glucose 122 H 123 H 105 H Hospitalist ROS - Review of Systems Constitutional: denies: fever, chills Respiratory: denies: cough, shortness of breath Cardiovascular: denies: chest pain, palpitations Gastrointestinal: reports: nausea, vomiting, abdominal pain - Medication Medications: Active Medications Generic Name Dose Route Start Last Admin Trade Name Manq PRN Reason Stop Dose Admin Famotidine 20 mg 03/03/20 09:00 03/04/20 07:38 Famotidine/Pf 20 Mg/2ml Vial SLOW IVP 20 mg Q12HR QUAN Administration Sodium Chloride 1,000 mls @ 100 mls/hr 03/02/20 23:30 03/04/20 02:24 Normal Saline 0.9% IV 1,000 mls .Q10H QUAN Administration Metronidazole 500 mg/ Device 100 mls @ 100 mls/hr 03/03/20 06:00 03/04/20 07: 36 IVPB 100 mls Q8HR QUAN Administration Cefepime HCl 2 gm/ Sodium 100 mls @ 200 mls/hr 03/03/20 09:00 03/04/20 09:05 Chloride IVPB 100 mls Q12HR QUAN Administration Promethazine HCl 12.5 mg/ 50.5 mls @ 202 mls/hr 03/03/20 08:29 03/03/20 14:42 Sodium Chloride IVPB 50.5 mls Q6H PRN Administration Nausea/Vomiting Morphine Sulfate 4 mg 03/03/20 08:29 03/04/20 07:37 Morphine 2 Mg/Ml Vial SLOW IVP 4 mg Q4H PRN Administration Pain Sodium Chloride 10 ml 03/03/20 09:00 03/04/20 09:05 Flush - Normal Saline 10 Ml Syringe IVF Not Given Q12HR QUAN Tramadol HCl 50 mg 03/03/20 13:35 03/03/20 14:42 Tramadol Hcl 50 Mg Tab PO 50 mg Q6H PRN Administration Pain - Exam General Appearance: NAD, awake alert ENT: moist mucosa Heart: RRR, no murmur, no gallops, no rubs Respiratory: CTAB, no wheezes, no rales, no ronchi Gastrointestinal: soft, non-distended, normal bowel sounds Gastrointestinal - other findings: diffusely tender, no rigidity or guarding right now Psychiatric: normal affect, normal behavior, A&O x 3 Hosp A/P (1) Abdominal pain Code(s): R10.9 - UNSPECIFIED ABDOMINAL PAIN Status: Acute Qualifiers: Abdominal location: left lower quadrant Qualified Code(s): R10.32 - Left lower quadrant pain (2) Sepsis Code(s): A41.9 - SEPSIS, UNSPECIFIED ORGANISM Status: Resolved (3) Type 2 diabetes mellitus Status: Chronic (4) HTN (hypertension) Code(s): I10 - ESSENTIAL (PRIMARY) HYPERTENSION Status: Chronic Qualifiers: Hypertension type: essential hypertension Qualified Code(s): I10 - Essential (primary) hypertension - Plan Patient with recurrent abdominal symptoms. Multiple surgeries in the past. Dr. Kaye evaluated yesterday and doesn't think there is any evidence of diverticulitis. He recommended surgical consultation if no improvement. Will ask Dr. Olivera to see today. Patient's symptoms seem chronic though progressive. No evidence acute infection or obstruction right now. Continuing antibiotics, antiemetics, and pain medications.
--- NOTE | 2020-03-04 09:28 | CON ---
DATE OF CONSULTATION: 03/03/2020 REASON FOR CONSULTATION: Abdominal pain, history of diverticulitis. HISTORY OF PRESENT ILLNESS: Mignon Guadarrama is a 35-year-old female, seen in the ER yesterday with abdominal pain over the left lower quadrant. Reported the pain was getting worse lately. The patient had leukocytosis and also lactic acid in the blood. She had abdominal CAT scan. The CAT scan showed diverticular disease, but no diverticulitis. The patient has a history of recurrent diverticulitis over the years. The patient has lived in [place] before. Apparently, she had been seeing a surgeon there who recommended her to have surgery. The patient has had previous segmental resection of the colon in the past for diverticulitis. She was hospitalized in December 2019 for the same reason. She had abdominal CAT scan done at that time, which again revealed diverticular disease, but no diverticulitis. Because of abdominal pain and history of diverticulitis, she had a colonoscopy in December 2019 by me. On colonoscopy, there was diverticulosis, but no diverticulitis seen. The colon was completely free of any inflammation. My personal opinion at that time was she most likely has IBS as she has chronic abdominal pain over the years. The patient was sent home on some antibiotics and antispasmodic. She states she went to [facility] a week later with some sepsis and was hospitalized. She was seen by a surgeon at the [facility]. She had an appointment to see a surgeon in [place] on 29 of March for possible colectomy. She says the pain never went away since she left the hospital in December 2019. She has had chronic pain. At the present time, she is n.p.o., she is on IV antibiotics. There is no nausea, no vomiting. No history of hematochezia. No diarrhea. No relevant history. ALLERGIES: ALLERGIC TO AZITHROMYCIN, FENTANYL, IV CONTRAST, MACROBID, SULFA, AND ZOFRAN. SOCIAL HISTORY: The patient does not smoke or drink alcohol. No history of drug abuse. MEDICAL ILLNESS: 1. Obesity. 2. History of recurrent diverticulitis. However, this was examined and normal by colonoscopy. 3. Hypertension. 4. Diabetes mellitus, type 2. SURGERIES: 1. Appendectomy. 2. Cholecystectomy. 3. Hysterectomy. 4. Segmental resection of the colon several years ago for diverticulitis. FAMILY HISTORY: Unremarkable. REVIEW OF SYSTEMS: 10-point system review. CONSTITUTIONAL: No history of any weight loss. No fever or chills. Had good exercise tolerance. HEENT: No chronic headache. No syncope. No impaired vision. No diplopia. No hearing loss. No nose bleed. No sore throat. NECK: No stiffness or any limitation of movement. CARDIOVASCULAR SYSTEM: No chest pain. No palpitation, dyspnea, orthopnea, or PND. LUNGS: No chronic coughing. No hemoptysis. GI: Abdominal pain, which is chronic in nature, off and on. She has been told to have recurrent diverticulitis in the past. However, this was examined and the exam was negative. : No dysuria or hematuria. MUSCULOSKELETAL: Not relevant. NEURO: Not relevant. ENDOCRINE: Not relevant. HEMATOLOGICAL: Not relevant. PHYSICAL EXAMINATION: GENERAL: She is obese, appears comfortable, in no acute distress. VITAL SIGNS: She is afebrile. Pulse is 72, blood pressure 138/76. HEENT: Conjunctivae are clear. NECK: Supple. CARDIOVASCULAR SYSTEM: Normal heart sounds. LUNGS: Clear to auscultation. ABDOMEN: Flabby and pendulous. Abdomen is soft. Abdomen is mildly tender over the left lower quadrant. No rebound or guarding. No organomegaly. Bowel sounds normal. LABORATORY DATA: On admission, she had leukocytosis of 14,000, but has come down to 8800, hemoglobin is 13.8, hematocrit 42.4, and platelet count is 312,000, polymorphs 65, lymphocytes 27.4, monocytes 5. Today, WBC came down to 8800, hemoglobin 13, hematocrit 39, differential count with polymorphs 63, lymphocytes 25, monocytes 6. Chem-7 is normal. Glucose is 122, calcium is 8.5, bilirubin 0.6, AST 23, ALT 26, albumin 3.1. An abdominal CAT scan done shows no acute findings. She does show diverticulosis, but no evidence of any diverticulitis on CAT scan. CLINICAL IMPRESSION: 1. Recurrent abdominal pain and past history of diverticulitis. Her pain location was left lower quadrant, which corresponds to diverticulitis. However, she had no fever, and she has had no CAT scan findings of diverticulitis. Apparently she saw a surgeon at [facility] and was referred to another surgeon in [place], [place]. 2. Hypertension. 3. Obesity. 4. History of diverticulitis with segmental resection of her colon many years ago. RECOMMENDATION: 1. Continue IV antibiotics. 2. Analgesics. 3. IV fluids. 4. Start the patient on clear liquid diet and advance diet as tolerated. The patient was informed that we would get surgical input while she is in hospital. This was conveyed to Dr. Esteban Calzada. Job ID: [id number]
[2020-03-04 09:37] VITALS: BMI 51.0
[2020-03-04] MEDS: traMADol HCl 50 MG TAB PO SCH ×2 (16:04→22:22)
[2020-03-04] MEDS: Acetaminophen 325 MG TAB PO SCH ×2 (16:04→22:21)
[2020-03-04] MEDS: cloNIDine 0.1 MG TAB PO SCH ×2 (16:05→22:21)
--- NOTE | 2020-03-04 17:01 | CON ---
DATE OF CONSULTATION: 03/04/2020 REQUESTING PHYSICIAN: Esteban Calzada MD HISTORY OF PRESENT ILLNESS: This is a 35-year-old morbidly obese woman with history of chronic abdominal pain, which spans about 10 to 12 years. The patient presented to the hospital with worsening left lower quadrant abdominal pain, which has been more frequent over the last 3 months. She denies any fevers or chills. She admits to nausea and one bout of emesis yesterday. Last bowel movement was two days ago. She last passed flatus yesterday. Currently she denies any nausea or vomiting. She now rates her pain at 5/10, receiving intravenous morphine. PAST MEDICAL HISTORY: Significant for: 1. Diverticulosis coli. 2. Morbid obesity. 3. Type 2 diabetes mellitus. 4. Essential hypertension. 5. Chronic abdominal pain. PAST SURGICAL HISTORY: Pertinent for: 1. Open appendectomy. 2. Hysterectomy with bilateral salpingo-oophorectomy. 3. Laparoscopic cholecystectomy. 4. Left colectomy with primary anastomosis, which was 2-1/2 years ago. SOCIAL HISTORY: She denies any cigarette smoking, ethanol, or illicit drug abuse. MEDICATIONS: She was taking hydrocodone for over 10 years up until 3 months ago. Prehospitalization medications includes: 1. Levemir 10 units q.p.m. 2. Lisinopril 10 mg p.o. daily. ALLERGIES: AZITHROMYCIN, FENTANYL, AND IODINE. REVIEW OF SYSTEMS: Ten-point review of systems is essentially unremarkable except as stated in past medical history and chief complaint. PHYSICAL EXAMINATION: GENERAL: This reveals a 35-year-old normally developed woman who is otherwise coherent and interactive and appears stated age. The patient is alert and oriented x3. She appears to be in no acute distress at the time of my evaluation. VITAL SIGNS: Today include blood pressure 156/85, pulse 74, respiratory rate is 20, temperature is 98.2 degrees Fahrenheit, and oxygen saturation 97% on room air. HEENT: Pupils equally round and reactive to light and accommodation. HEART: Regular rate and rhythm. LUNGS: Clear to auscultation bilaterally. Breathing, regular and nonlabored. ABDOMEN: Soft and obese with mild left lower quadrant tenderness to palpation subjectively. She clearly has no peritoneal signs on examination. NEUROLOGIC: No focal deficits present. LABORATORY FINDINGS: Today includes a CBC with 7800 white blood cells, this is in contrast to the admitting white blood cell count of 14,100 on 03/02/2020. Note that the patient has had all hospital visits where the white blood cell count was as high as 15,400 on 12/31/2019. Hemoglobin and hematocrit 11.5 and 35.9 respectively and platelet count is 243,000. Metabolic profile: Sodium 140, potassium 3.6, chloride is 108, bicarb is 24, BUN is 9, creatinine 0.67, and glucose 105. I have personally reviewed all recent radiographic studies including a CT scan of the abdomen and pelvis, which were obtained on 12/31/2019, 01/01/2020, 02/25/2020, as well as 03/02/2020. Mostly noted that all the aforementioned CT scans show evidence of extensive diverticulosis coli, but no evidence of diverticulitis, free fluid, or pneumoperitoneum present. There is also no evidence of bowel obstruction as the gas pattern were all nonspecific in all these studies. IMPRESSIONS: 1. Chronic abdominal pain. 2. Diverticulosis coli with no clinical or radiographic evidence of acute diverticulitis. 3. Morbid obesity. 4. History of type 2 diabetes mellitus. RECOMMENDATIONS: There is no acute surgical indication for this patient at this time as I am convinced that colectomy with ileostomy will likely not resolve this patient's abdominal pain, which I do not think is related to diverticular disease. To this end, I am recommending medical management using the duloxetine for visceral pain control as well as nonopioid analgesia. I have advised the patient that this regimen is most appropriate given the partial colectomy, which was performed 2-1/2 years ago failed to resolve the abdominal pain, which was being treated at the time. Medical management must therefore be continued for considerable amount of time. The patient will be re-evaluated, at which time future surgical interventions could be considered. The above findings and recommendations discussed with the patient extensively in the presence of her nurse. The patient indicates understanding of the information provided. I have answered her questions. Thank you again, Dr. Calzada, for allowing me the opportunity to participate in the care of this patient. Job ID: [id number]
[2020-03-04] MEDS: HumaLOG 300 UNITS/3 ML VIAL SC PRN (21:42)
[2020-03-05] MEDS: Sodium Chloride 0.9% 1,000 ML IV SCH (02:34)
[2020-03-05] MEDS: cloNIDine 0.1 MG TAB PO SCH ×3 (04:50→16:05)
[2020-03-05] MEDS: Acetaminophen 325 MG TAB PO SCH ×3 (04:50→16:05)
[2020-03-05] MEDS: traMADol HCl 50 MG TAB PO SCH ×3 (04:51→16:06)
[2020-03-05] MEDS: metroNIDAZOLE 500 MG in Premix Bag 1 BAG IVPB SCH (05:57)
[2020-03-05] MEDS: Famotidine/PF 20 mg/2ml Vial SLOW IVP SCH (08:13)
[2020-03-05] MEDS ORDERED: Senokot S 8.6-50 MG TAB PO PRN (08:15)
--- NOTE | 2020-03-05 08:18 | PDOC.HOSPP ---
- Subjective Encounter Date: 03/05/20 Encounter Time: 11:00 Subjective: Patient feeling much better. Pain improved more with the Tramadol/Clonidine and Duloxetine combination started by Dr. Olivera. Able to eat some. - Objective Vital Signs & Weight: Vital Signs (12 hours) Temp Pulse Resp BP BP Pulse Ox 03/05/20 08:13 127/90 03/05/20 07:42 98.0 F 62 20 142/84 H 99 03/05/20 04:50 97.9 F 68 16 127/90 121/90 99 03/05/20 00:40 98.1 F 64 16 128/81 98 Weight Weight 297 lb I&O: 03/04/20 03/05/20 03/06/20 06:59 06:59 06:59 Intake Total 400 1920 Balance 400 1920 Result Diagrams: 03/04/20 05:15 03/04/20 05:15 Additional Labs: Accuchecks 03/05/20 03/04/20 03/04/20 06:03 21:06 16:40 POC Glucose 131 H 220 H 151 H 03/04/20 03/03/20 11:12 08:11 POC Glucose 95 116 H Hospitalist ROS - Review of Systems Constitutional: denies: fever, chills Respiratory: denies: cough, shortness of breath Cardiovascular: denies: chest pain, palpitations Gastrointestinal: reports: abdominal pain. denies: nausea, vomiting, diarrhea - Medication Medications: Active Medications Generic Name Dose Route Start Last Admin Trade Name Manq PRN Reason Stop Dose Admin Acetaminophen 650 mg 03/04/20 16:00 03/05/20 04:50 Acetaminophen 325 Mg Tab PO 650 mg 0400,1000,1600,2200 QUAN Administration Clonidine 0.1 mg 03/04/20 16:00 03/05/20 04:50 Clonidine 0.1 Mg Tab PO 0.1 mg 0400,1000,1600,2200 QUAN Administration Duloxetine HCl 30 mg 03/05/20 09:00 03/05/20 08:13 Duloxetine 30 Mg Cap PO 30 mg DAILY QUAN Administration Famotidine 20 mg 03/03/20 09:00 03/05/20 08:13 Famotidine/Pf 20 Mg/2ml Vial SLOW IVP 20 mg Q12HR QUAN Administration Sodium Chloride 1,000 mls @ 100 mls/hr 03/02/20 23:30 03/05/20 02:34 Normal Saline 0.9% IV 1,000 mls .Q10H QUAN Administration Promethazine HCl 12.5 mg/ 50.5 mls @ 202 mls/hr 03/03/20 08:29 03/03/20 14:42 Sodium Chloride IVPB 50.5 mls Q6H PRN Administration Nausea/Vomiting Insulin Human Lispro 0 units 03/03/20 01:50 03/04/20 21:42 Humalog 300 Units/3 Ml Vial SC 3 unit .MILD SLIDING SCALE PRN Administration Mild Correctional Scale Lisinopril 10 mg 03/05/20 09:00 03/05/20 08:13 Lisinopril 10 Mg Tab PO 10 mg DAILY QUAN Administration Sodium Chloride 10 ml 03/03/20 09:00 03/04/20 21:34 Flush - Normal Saline 10 Ml Syringe IVF 10 ml Q12HR QUAN Administration Sodium Chloride 10 ml 03/03/20 08:15 03/04/20 21:34 Flush - Normal Saline 10 Ml Syringe IVF 10 ml PRN PRN Administration Saline Flush Tramadol HCl 100 mg 03/04/20 16:00 03/05/20 04:51 Tramadol Hcl 50 Mg Tab PO 100 mg 0400,1000,1600,2200 QUAN Administration - Exam General Appearance: NAD, awake alert ENT: moist mucosa Heart: RRR, no murmur, no gallops, no rubs Respiratory: CTAB, no wheezes, no rales, no ronchi Gastrointestinal: soft, non-distended, normal bowel sounds, no guarding, no rigidity, tender to palpation Gastrointestinal - other findings: worst in LLQ Psychiatric: normal affect, normal behavior, A&O x 3 Hosp A/P (1) Abdominal pain Code(s): R10.9 - UNSPECIFIED ABDOMINAL PAIN Status: Chronic Qualifiers: Abdominal location: left lower quadrant Qualified Code(s): R10.32 - Left lower quadrant pain (2) Sepsis Code(s): A41.9 - SEPSIS, UNSPECIFIED ORGANISM Status: Resolved (3) Type 2 diabetes mellitus Status: Chronic (4) HTN (hypertension) Code(s): I10 - ESSENTIAL (PRIMARY) HYPERTENSION Status: Chronic Qualifiers: Hypertension type: essential hypertension Qualified Code(s): I10 - Essential (primary) hypertension (5) Diverticulosis Code(s): K57.90 - DVRTCLOS OF INTEST, PART UNSP, W/O PERF OR ABSCESS W/O BLEED Status: Chronic - Plan Patient with recurrent abdominal symptoms. Multiple surgeries in the past. Patient's symptoms seem chronic though progressive. Appreciate Dr. Olivera and Dr. Kaye's assistance. No evidence acute infection or obstruction right now. D/C antibiotics. Starting Duloxetine. Converting to oral Tramadol/Clonidine combination. Home today and f/u with her colorectal surgeon appointment in 1 month.
[2020-03-05] MEDS ORDERED: Lisinopril 10 MG TAB PO SCH (09:00)
[2020-03-05] MEDS ORDERED: DULoxetine 30 MG CAP PO SCH (09:00)
[2020-03-05] MEDS: HumaLOG 300 UNITS/3 ML VIAL SC PRN (12:34)
[2020-03-05 15:58] VITALS: BP 139/67; TEMP 98.6
--- NOTE | 2020-03-08 09:14 | DIS ---
DATE OF ADMISSION: 03/02/2020 DATE OF DISCHARGE: 03/05/2020 PRIMARY CARE PHYSICIAN: Dr. José Miguel Bell. REASON FOR ADMISSION: Abdominal pain with sepsis. DIAGNOSES AT DISCHARGE: 1. Acute flare of chronic abdominal pain. 2. Sepsis, ruled out. 3. Diabetes mellitus, type 2. 4. Hypertension. 5. Diverticulosis. PROCEDURES: CT abdomen and pelvis without IV contrast showing possible blood in the urine. No obstructive uropathy, hepatic steatosis, hepatomegaly, or pancolonic diverticulosis without any evidence of diverticulitis. CONSULTATIONS: 1. Gastroenterology, Dr. Kaye. 2. General Surgery, Dr. Olivera. SUMMARY OF HOSPITAL COURSE: This is a 35-year-old white female with a past medical history of severe diverticulosis and recurrent diverticulitis episodes with resulting in chronic abdominal pain for the past 10 to 15 years. She has had multiple abdominal surgeries and 2 years ago due to persistent severe left lower quadrant pain, she had a partial hemicolectomy. She has had persistent pain since. There was some talk of doing a diverting colostomy when she was in [place], however, she moved down here. She is currently getting worked up and has an appointment with a colorectal surgeon in [place] in the middle of March. The patient had worsening of her chronic abdominal pain. She stopped eating or drinking any fluids at all for a couple of days prior to presentation because often times, it would help the pain get better if she stopped eating any or drinking anything. However, the pain persisted, so she went into the emergency room. She was found to have a very elevated lactic acid of 3.3. Her white blood cell count of 14,000. There was concern for sepsis. She was given Zosyn and vancomycin. She had a CT scan done, which showed no evidence of diverticulitis, but did have diverticulosis. The patient was admitted to the hospital. She had severe persistent pain, eventually controlled with morphine and tramadol. Gastroenterology was consulted. Dr. Kaye recommended a General Surgery consult. We do not see any evidence of an acute infection. Dr. Olivera was consulted with General Surgery. He reviewed the films, the lab and exam of the patient, he determined this was due to her chronic pain, not to infection. He recommended against any surgery as her previous surgery did not help at all either. Dr. Olivera did start her on a combination of tramadol and clonidine with duloxetine and this actually improved the patient's symptoms more than the morphine she was getting. The patient was tolerating food and ambulating by the day of discharge. Her pain was improved control and so she is being discharged home. DISCHARGE MANAGEMENT: Discharged home. ACTIVITY: As tolerated. DIET: Diabetic diet. The patient is to drink fluids even if she is having severe pain. She is to keep up with oral intake of small amounts of fluids frequently to prevent recurrent dehydration episodes. FOLLOWUP: With Dr. Bell in one week and with her colorectal surgery referral next month as scheduled. DISCHARGE MEDICATIONS: 1. Clonidine 0.1 mg 4 times a day, 120 tablets dispensed. 2. Tramadol 100 mg 4 times a day, 120 capsules dispensed. 3. Duloxetine 30 mg daily, 30 capsules dispensed. 4. Promethazine 25 mg every 6 hours as needed for nausea and vomiting, 15 tablets dispensed. 5. Sennosides/docusate sodium 2 tablets at night as needed for constipation from the pain medications, 30 tablets dispensed. 6. Levemir insulin 10 units each night. 7. Lisinopril 10 mg daily. TIME SPENT: Arranging the details of this discharge took 32 minutes. Job ID: [id number]
== END 2020-03-05 16:20 | disposition home or self-care (01) | DRG 872 ==
LOC: ERS 22:34 → OBSVTOIN 23:38 → 3SW 23:38 → 3SE 03-03 07:34
PROVIDERS: ADMIT Internal Medicine; ATTEND Emergency Medicine
DX: A41.9 Sepsis, unspecified organism (principal); Z68.43 Body mass index [BMI] 50.0-59.9, adult; Z20.828 Contact with and (suspected) exposure to other viral communicable diseases; E11.9 Type 2 diabetes mellitus without complications; I10 Essential (primary) hypertension; E66.01 Morbid (severe) obesity due to excess calories; K57.90 Diverticulosis of intestine, part unspecified, without perforation or abscess without bleeding; Z90.49 Acquired absence of other specified parts of digestive tract; Z90.710 Acquired absence of both cervix and uterus; Z88.2 Allergy status to sulfonamides; Z88.8 Allergy status to other drugs, medicaments and biological substances; Z88.4 Allergy status to anesthetic agent; Z88.1 Allergy status to other antibiotic agents; Z91.041 Radiographic dye allergy status; Z79.899 Other long term (current) drug therapy; Z79.4 Long term (current) use of insulin
CPT/HCPCS: 36415; 36416; 80048; 80053; 85025; 87635; 93005; 96374; J0692; J2270; J2550; J3490; S0028; U0003

== ENCOUNTER 2020-04-28 22:58 | Emergency (ER) | payer MEDICAID ==
[2020-04-28 23:45] LABS: #Eosinphils 0.2 thou/uL (0.0-0.7); #Lymphocytes 3.2 thou/uL (1.20-3.40); #Monocytes 0.9 thou/uL (0.11-0.59); #Neutrophils 8.6 thou/uL (1.40-6.50); %Basophils 0.1 % (0.0-1.0); %Eosinophils 1.3 % (0.0-10.0); %Lymphocytes 25.2 % (21.0-51.0); %Monocytes 6.6 % (0.0-10.0); %Neutrophils 66.8 % (42.0-75.0); Hemoglobin 14.3 g/dL (12.0-16.0); Mean Corpuscular HGB CONC 33.6 g/dL (32.0-36.0); Mean Corpuscular Hemoglobin 31.9 pg (27.0-31.0); Mean Corpuscular Volume 94.8 fL (78.0-98.0); Mean Platelet Volume 8.7 fL (7.4-10.4); Platelet Count 185 thou/uL (130-400); RBC Distribution Width 11.6 % (11.5-14.5); Red Blood Cell (RBC) Count 4.49 mill/uL (4.20-5.40); White Blood Cell (WBC) Count 12.8 thou/uL (4.8-10.8)
[2020-04-28 23:59] LABS: ALT (SGPT) 28 U/L (8-55); AST (SGOT) 19 U/L (5-34); Albumin 4.2 g/dL (3.5-5.0); Alkaline Phosphatase 95 U/L (40-110); Anion Gap 19 mmol/L (10-20); BUN (Urea Nitrogen) 15 mg/dL (7.0-18.7); Bilirubin, Total 0.4 mg/dL (0.2-1.2); Calc. Creatinine Clearance 0 mL/min (70-130); Carbon Dioxide 22 mmol/L (22-29); Chloride 104 mmol/L (98-107); Globulin 3.5 g/dL (2.4-3.5); Glucose 189 mg/dL (70-105); Lipase 25 U/L (8-78); Potassium 4.3 mmol/L (3.5-5.1); Protein, Total 7.7 g/dL (6.0-8.3); Sodium 141 mmol/L (136-145)
[2020-04-29 00:08] LABS: Bilirubin Negative (Negative); Blood, Urine Negative (Negative); Clarity Clear (Clear); Glucose, Urine (Dipstick) 100 mg/dL (Negative); Ketone, Urine Negative (Negative); Leukocyte Negative Leu/uL (Negative); Nitrite Negative (Negative); Protein, Urine (Dipstick) Negative (Neg-Trace); Specific Gravity, Urine 1.012 (1.002-1.036); Urobilinogen Normal mg/dL (Less than 2); pH, Urine 5.5 (5.0-9.0)
== END 2020-04-29 00:17 | disposition home or self-care (01) ==
LOC: ERS 22:58
DX: K57.92 Diverticulitis of intestine, part unspecified, without perforation or abscess without bleeding (principal); I10 Essential (primary) hypertension; E11.9 Type 2 diabetes mellitus without complications; Z87.891 Personal history of nicotine dependence; Z79.4 Long term (current) use of insulin; Z79.899 Other long term (current) drug therapy
CPT/HCPCS: 80053; 81003; 83690; 85025; 99284

== ENCOUNTER 2021-01-09 01:06 | Emergency (ER) | payer OTHER ==
[2021-01-09 02:37] LABS: BHCG - Serum Negative (NEGATIVE); Pregs Control Background? CLEAR/WHITE (CLR/WHITE); Pregs Control Bar Appear? YES (CONTROL BAR)
[2021-01-09 02:40] LABS: #Basophils 0.1 thou/uL (0.0-0.2); #Eosinphils 0.2 thou/uL (0.0-0.7); #Lymphocytes 4.6 thou/uL (1.20-3.40); #Neutrophils 7.3 thou/uL (1.40-6.50); %Basophils 0.6 % (0.0-1.0); %Eosinophils 1.2 % (0.0-10.0); %Monocytes 7.9 % (0.0-10.0); %Neutrophils 55.4 % (42.0-75.0); Mean Corpuscular HGB CONC 33.3 g/dL (32.0-36.0); Mean Corpuscular Hemoglobin 31.4 pg (27.0-31.0); Mean Corpuscular Volume 94.5 fL (78.0-98.0); Platelet Count 299 thou/uL (130-400); Red Blood Cell (RBC) Count 4.44 mill/uL (4.20-5.40); White Blood Cell (WBC) Count 13.2 thou/uL (4.8-10.8)
[2021-01-09 02:52] LABS: ALT (SGPT) 26 U/L (8-55); AST (SGOT) 13 U/L (5-34); Albumin 3.9 g/dL (3.5-5.0); Alkaline Phosphatase 94 U/L (40-110); Anion Gap 13 mmol/L (10-20); BUN (Urea Nitrogen) 12 mg/dL (7.0-18.7); Bilirubin, Total 0.4 mg/dL (0.2-1.2); Calc. Creatinine Clearance 0 mL/min (70-130); Carbon Dioxide 27 mmol/L (22-29); Chloride 99 mmol/L (98-107); Globulin 3.4 g/dL (2.4-3.5); Glucose 305 mg/dL (70-105); Lipase 29 U/L (8-78); Potassium 4.1 mmol/L (3.5-5.1); Protein, Total 7.3 g/dL (6.0-8.3); Sodium 135 mmol/L (136-145)
[2021-01-09] MEDS ORDERED: Morphine 4 MG/ML VIAL ONE (03:12)
[2021-01-09] MEDS ORDERED: Promethazine HCl 25 MG/ML VIAL ONE (03:12)
== END 2021-01-09 03:55 | disposition home or self-care (01) ==
LOC: ERS 01:06
DX: R10.32 Left lower quadrant pain (principal); R19.7 Diarrhea, unspecified; R00.0 Tachycardia, unspecified; I10 Essential (primary) hypertension; E11.9 Type 2 diabetes mellitus without complications; Z87.19 Personal history of other diseases of the digestive system; Z87.891 Personal history of nicotine dependence; Z79.891 Long term (current) use of opiate analgesic
CPT/HCPCS: 36415; 74176; 80053; 83690; 84703; 85025; 93005; 96365; 96375; J2270; J2550

== ENCOUNTER 2021-10-31 23:50 | Observation (INO) | payer OTHER ==
[2021-11-01 00:44] LABS: #Basophils 0.1 thou/uL (0.0-0.2); #Eosinphils 0.2 thou/uL (0.0-0.7); #Monocytes 0.7 thou/uL (0.11-0.59); #Neutrophils 9.5 thou/uL (1.40-6.50); %Basophils 0.9 % (0.0-1.0); %Lymphocytes 27.8 % (21.0-51.0); %Monocytes 4.8 % (0.0-10.0); %Neutrophils 65.4 % (42.0-75.0); Hemoglobin 16.4 g/dL (12.0-16.0); Mean Corpuscular HGB CONC 33.7 g/dL (32.0-36.0); Mean Corpuscular Hemoglobin 31.8 pg (27.0-31.0); Mean Corpuscular Volume 94.4 fL (78.0-98.0); Mean Platelet Volume 7.8 fL (7.4-10.4); Platelet Count 293 thou/uL (130-400); RBC Distribution Width 11.3 % (11.5-14.5); Red Blood Cell (RBC) Count 5.14 mill/uL (4.20-5.40); White Blood Cell (WBC) Count 14.5 thou/uL (4.8-10.8)
[2021-11-01 01:07] LABS: ALT (SGPT) 28 U/L (8-55); AST (SGOT) 21 U/L (5-34); Albumin 4.5 g/dL (3.5-5.0); Alkaline Phosphatase 94 U/L (40-110); Anion Gap 21 mmol/L (10-20); BUN (Urea Nitrogen) 12 mg/dL (7.0-18.7); Bilirubin, Total 0.7 mg/dL (0.2-1.2); Calc. Creatinine Clearance 0 mL/min (70-130); Calcium 9.8 mg/dL (7.8-10.44); Carbon Dioxide 18 mmol/L (22-29); Chloride 103 mmol/L (98-107); Estimated GFR 94; Globulin 3.5 g/dL (2.4-3.5); Glucose 214 mg/dL (70-105); Potassium 3.9 mmol/L (3.5-5.1); Sodium 138 mmol/L (136-145)
[2021-11-01 01:55] LABS: Pregnancy Test - Urine (BHCG) Negative (Negative); Pregu Control Background? CLEAR/WHITE (CLR/WHITE); Pregu Control Bar Appear? YES (CONTROL BAR)
[2021-11-01 02:05] LABS: Bilirubin 1+ (Negative); Blood, Urine Negative (Negative); Clarity Turbid (Clear); Glucose, Urine (Dipstick) 500 mg/dL (Negative); Ketone, Urine Trace mg/dL (Negative); Leukocyte Negative Leu/uL (Negative); Nitrite Negative (Negative); Protein, Urine (Dipstick) 50 mg/dL (Neg-Trace); Specific Gravity, Urine 1.031 (1.002-1.036); pH, Urine 5.5 (5.0-9.0)
[2021-11-01 02:06] LABS: Specific Gravity 1.031 (1.002-1.036)
[2021-11-01 02:09] LABS: Bacteria/HPF Rare-Few HPF (None Seen); RBC/HPF 0-3 HPF (0-3); Squamous Epithelial 0-3 HPF (0-3); WBC/HPF 0-3 HPF (0-3)
[2021-11-01] MEDS ORDERED: Ketorolac Tromethamine 30 MG/ML VIAL ONE (02:29)
[2021-11-01] MEDS ORDERED: Piperacillin/Tazobactam 4.5 GM VIAL ONE (02:32)
[2021-11-01] MEDS ORDERED: Morphine 4 MG/ML VIAL ONE ×4 (03:12→09:01)
[2021-11-01 06:23] LABS: #Eosinphils 0.1 thou/uL (0.0-0.7); #Lymphocytes 4.1 thou/uL (1.20-3.40); #Monocytes 0.6 thou/uL (0.11-0.59); #Neutrophils 6.4 thou/uL (1.40-6.50); %Basophils 0.4 % (0.0-1.0); %Eosinophils 1.2 % (0.0-10.0); %Lymphocytes 36.3 % (21.0-51.0); %Monocytes 5.1 % (0.0-10.0); %Neutrophils 56.9 % (42.0-75.0); Hemoglobin 14.5 g/dL (12.0-16.0); Mean Corpuscular HGB CONC 33.5 g/dL (32.0-36.0); Mean Corpuscular Hemoglobin 31.8 pg (27.0-31.0); Mean Corpuscular Volume 94.9 fL (78.0-98.0); Mean Platelet Volume 7.8 fL (7.4-10.4); Platelet Count 242 thou/uL (130-400); RBC Distribution Width 11.4 % (11.5-14.5); Red Blood Cell (RBC) Count 4.55 mill/uL (4.20-5.40); White Blood Cell (WBC) Count 11.2 thou/uL (4.8-10.8)
[2021-11-01 06:53] LABS: Anion Gap 16 mmol/L (10-20); BUN (Urea Nitrogen) 14 mg/dL (7.0-18.7); Calc. Creatinine Clearance 0 mL/min (70-130); Calcium 8.7 mg/dL (7.8-10.44); Carbon Dioxide 23 mmol/L (22-29); Chloride 105 mmol/L (98-107); Estimated GFR 89; Glucose 200 mg/dL (70-105); Potassium 4.3 mmol/L (3.5-5.1); Sodium 140 mmol/L (136-145)
[2021-11-01] MEDS ORDERED: Morphine 4 MG/ML VIAL SLOW IVP SCH (07:00)
[2021-11-01 07:37] LABS: SARS-CoV-2 NAA Rapid Test Not Detected (NotDetected)
[2021-11-01] MEDS ORDERED: Acetaminophen 325 MG TAB PO PRN (08:44)
[2021-11-01] MEDS ORDERED: Ondansetron PF 4 MG/2 ML Vial IVP PRN (08:44)
[2021-11-01] MEDS ORDERED: Pantoprazole 40 MG VIAL ONE (09:08)
[2021-11-01] MEDS ORDERED: Dextrose 50% Abboject 50 ML SYRINGE SLOW IVP PRN (09:24)
[2021-11-01] MEDS ORDERED: Dextrose 5% in Water 1,000 ML IV PRN (09:24)
[2021-11-01] MEDS ORDERED: Pantoprazole 40 MG VIAL IVP SCH (09:30)
[2021-11-01] MEDS: Sodium Chloride 0.9% 1,000 ML IV SCH ×3 (09:30→20:14)
[2021-11-01 11:49] VITALS: BMI 48.2
[2021-11-01 12:11] LABS: Hemoglobin 14.1 g/dL (12.0-16.0)
[2021-11-01] MEDS: Morphine 2 MG/ML VIAL SLOW IVP PRN ×3 (13:51→23:03)
[2021-11-01] MEDS ORDERED: Scopolamine 1.5 mg/72 hour Patch TD SCH (14:30)
[2021-11-01] MEDS: HumaLOG 300 UNITS/3 ML VIAL SC PRN (16:41)
[2021-11-01] MEDS: Pantoprazole 40 MG VIAL IVP SCH (20:08)
[2021-11-02] MEDS: Sodium Chloride 0.9% 1,000 ML IV SCH ×4 (03:05→21:14)
[2021-11-02] MEDS: Morphine 2 MG/ML VIAL SLOW IVP PRN ×4 (05:39→19:39)
[2021-11-02 06:52] LABS: #Basophils 0.1 thou/uL (0.0-0.2); #Eosinphils 0.2 thou/uL (0.0-0.7); #Lymphocytes 3.4 thou/uL (1.20-3.40); #Monocytes 0.6 thou/uL (0.11-0.59); #Neutrophils 5.5 thou/uL (1.40-6.50); %Basophils 0.7 % (0.0-1.0); %Eosinophils 1.9 % (0.0-10.0); %Lymphocytes 34.8 % (21.0-51.0); %Monocytes 6.4 % (0.0-10.0); %Neutrophils 56.1 % (42.0-75.0); Anion Gap 14 mmol/L (10-20); BUN (Urea Nitrogen) 12 mg/dL (7.0-18.7); Calc. Creatinine Clearance 193 mL/min (70-130); Calcium 8.3 mg/dL (7.8-10.44); Carbon Dioxide 21 mmol/L (22-29); Chloride 109 mmol/L (98-107); Estimated GFR 100; Glucose 158 mg/dL (70-105); Hemoglobin 12.5 g/dL (12.0-16.0); Mean Corpuscular Hemoglobin 31.8 pg (27.0-31.0); Mean Corpuscular Volume 96.5 fL (78.0-98.0); Platelet Count 210 thou/uL (130-400); Potassium 3.3 mmol/L (3.5-5.1); RBC Distribution Width 11.4 % (11.5-14.5); Red Blood Cell (RBC) Count 3.93 mill/uL (4.20-5.40); Sodium 141 mmol/L (136-145); White Blood Cell (WBC) Count 9.9 thou/uL (4.8-10.8)
[2021-11-02] MEDS ORDERED: Potassium Chloride 20 MEQ TAB PO SCH (07:15)
[2021-11-02] MEDS: Pantoprazole 40 MG VIAL IVP SCH ×2 (08:50→21:32)
[2021-11-02] MEDS: HumaLOG 300 UNITS/3 ML VIAL SC PRN ×2 (13:02→17:17)
[2021-11-02] MEDS ORDERED: Insulin Glargine 30 UNITS/0.3 ML VIAL SC SCH (21:00)
[2021-11-02] MEDS ORDERED: Gabapentin 400 MG CAP PO SCH (21:00)
[2021-11-02] MEDS: traMADol HCl 50 MG TAB PO SCH (21:17)
[2021-11-03] MEDS: Morphine 2 MG/ML VIAL SLOW IVP PRN ×3 (00:01→11:11)
[2021-11-03] MEDS: Sodium Chloride 0.9% 1,000 ML IV SCH ×2 (05:54→11:07)
[2021-11-03] MEDS: traMADol HCl 50 MG TAB PO SCH (08:09)
[2021-11-03] MEDS: Pantoprazole 40 MG VIAL IVP SCH (08:10)
[2021-11-03] MEDS ORDERED: Scopolamine 1.5 mg/72 hour Patch TD SCH (11:00)
[2021-11-03 12:26] VITALS: BP 154/91; TEMP 97.9
== END 2021-11-03 13:56 | disposition home or self-care (01) ==
LOC: ERS 23:50 → ERHOLD 11-01 04:15 → T4-B 11-01 11:19
PROVIDERS: ADMIT Internal Medicine; ATTEND Internal Medicine
DX: K57.31 Diverticulosis of large intestine without perforation or abscess with bleeding (principal); K58.0 Irritable bowel syndrome with diarrhea; I10 Essential (primary) hypertension; E11.65 Type 2 diabetes mellitus with hyperglycemia; D72.829 Elevated white blood cell count, unspecified; Z20.822 Contact with and (suspected) exposure to COVID-19; R16.0 Hepatomegaly, not elsewhere classified; E66.01 Morbid (severe) obesity due to excess calories; Z68.41 Body mass index [BMI] 40.0-44.9, adult; Z79.4 Long term (current) use of insulin; Z79.899 Other long term (current) drug therapy; Z88.1 Allergy status to other antibiotic agents; Z88.2 Allergy status to sulfonamides; Z88.8 Allergy status to other drugs, medicaments and biological substances; Z91.018 Allergy to other foods; Z91.041 Radiographic dye allergy status
CPT/HCPCS: 36415; 36416; 74176; 80048; 80053; 81003; 81015; 81025; 83605; 85025; 87040; 87077; 87149; 96375; 96376; C9113; G0378; J1815; J1885; J2270; J2543; J7050; U0002

== ENCOUNTER 2021-12-17 01:36 | Inpatient (IN) | payer OTHER ==
[2021-12-17 03:18] VITALS: BMI 48.2
[2021-12-17] MEDS ORDERED: Acetaminophen 325 MG TAB PO PRN (03:20)
[2021-12-17] MEDS ORDERED: Acetaminophen 650 MG Suppository PR PRN (03:20)
[2021-12-17] MEDS ORDERED: Sodium Chloride 0.9% 1,000 ML IV SCH (03:30)
[2021-12-17] MEDS: Morphine 4 MG/ML VIAL SLOW IVP PRN ×4 (03:58→17:30)
[2021-12-17] MEDS: Sodium Chloride 0.9% 1,000 ML IV SCH ×2 (03:59→15:42)
[2021-12-17] MEDS ORDERED: Dextrose 5% in Water 1,000 ML IV PRN ×2 (04:44→04:47)
[2021-12-17] MEDS ORDERED: HumaLOG 300 UNITS/3 ML VIAL SC PRN (04:44)
[2021-12-17] MEDS ORDERED: Dextrose 50% Abboject 50 ML SYRINGE SLOW IVP PRN ×2 (04:44→04:47)
[2021-12-17 05:31] LABS: SARS-CoV-2 NAA Rapid Test Not Detected (NotDetected)
[2021-12-17 05:37] LABS: #Basophils 0.1 thou/uL (0.0-0.2); #Eosinphils 0.1 thou/uL (0.0-0.7); #Lymphocytes 4.4 thou/uL (1.20-3.40); #Monocytes 0.7 thou/uL (0.11-0.59); #Neutrophils 5.8 thou/uL (1.40-6.50); %Basophils 0.7 % (0.0-1.0); %Eosinophils 1.1 % (0.0-10.0); %Lymphocytes 39.9 % (21.0-51.0); %Monocytes 6.4 % (0.0-10.0); %Neutrophils 51.9 % (42.0-75.0); Hemoglobin 13.5 g/dL (12.0-16.0); Mean Corpuscular HGB CONC 33.5 g/dL (32.0-36.0); Mean Corpuscular Hemoglobin 31.8 pg (27.0-31.0); Mean Corpuscular Volume 94.7 fL (78.0-98.0); Mean Platelet Volume 8.2 fL (7.4-10.4); Platelet Count 237 thou/uL (130-400); RBC Distribution Width 11.4 % (11.5-14.5); Red Blood Cell (RBC) Count 4.24 mill/uL (4.20-5.40); White Blood Cell (WBC) Count 11.1 thou/uL (4.8-10.8)
[2021-12-17 05:41] LABS: Hemoglobin A1c 10.1 % (4.0-6.0)
[2021-12-17 05:57] LABS: Anion Gap 16 mmol/L (10-20); BUN (Urea Nitrogen) 14 mg/dL (7.0-18.7); Calc. Creatinine Clearance 189 mL/min (70-130); Calcium 8.5 mg/dL (7.8-10.44); Carbon Dioxide 20 mmol/L (22-29); Chloride 103 mmol/L (98-107); Estimated GFR 102; Glucose 258 mg/dL (70-105); Potassium 4.1 mmol/L (3.5-5.1); Sodium 135 mmol/L (136-145)
[2021-12-17] MEDS: Piperacillin/Tazobactam 3.375 GM in Sodium Chloride 0.9% 100 ML IVPB SCH ×2 (13:50→21:18)
[2021-12-17] MEDS: HumaLOG 300 UNITS/3 ML VIAL SC PRN ×3 (14:13→21:16)
[2021-12-17] MEDS ORDERED: GoLYTELY 4,000 ml Bottle PO SCH (20:15)
[2021-12-17] MEDS: Gabapentin 400 MG CAP PO SCH (21:10)
[2021-12-17] MEDS: Insulin Glargine 30 UNITS/0.3 ML VIAL SC SCH (21:14)
[2021-12-17] MEDS: traMADol HCl 50 MG TAB PO SCH (21:15)
[2021-12-17] MEDS: tiZANidine HCl 4 MG TAB PO SCH (21:15)
[2021-12-17] MEDS: Morphine 2 MG/ML VIAL SLOW IVP PRN (23:25)
[2021-12-18] MEDS ORDERED: Magnesium Citrate 300 ML BOT PO SCH (02:00)
[2021-12-18] MEDS: Morphine 2 MG/ML VIAL SLOW IVP PRN (04:04)
[2021-12-18] MEDS: Piperacillin/Tazobactam 3.375 GM in Sodium Chloride 0.9% 100 ML IVPB SCH (05:33)
[2021-12-18] MEDS: Polyethylene Glycol 3350 17 GM Packet PO SCH (09:40)
[2021-12-18] MEDS: tiZANidine HCl 4 MG TAB PO SCH ×3 (09:40→23:52)
[2021-12-18] MEDS: traMADol HCl 50 MG TAB PO SCH ×3 (09:40→23:52)
[2021-12-18] MEDS ORDERED: Ketamine 50 MG/ML (10ML VIAL) ONE (10:16)
[2021-12-18] MEDS ORDERED: PROPOFOL 200 MG/20 ML VIAL ONE (10:31)
[2021-12-18] MEDS ORDERED: Hyoscyamine Sulfate SL 0.125 mg Tablet PO PRN (11:02)
[2021-12-18] MEDS ORDERED: Promethazine HCl 25 MG/ML VIAL IM PRN (11:06)
[2021-12-18] MEDS ORDERED: Promethazine HCl 25 MG/ML VIAL IVPB PRN (11:06)
[2021-12-18] MEDS ORDERED: Insulin Glargine 30 UNITS/0.3 ML VIAL SC SCH (12:34)
[2021-12-18] MEDS: HumaLOG 300 UNITS/3 ML VIAL SC PRN ×3 (12:44→20:42)
[2021-12-18] MEDS ORDERED: Cosyntropin 250 MCG VIAL SLOW IVP SCH (12:45)
[2021-12-18] MEDS ORDERED: Morphine 2 MG/ML VIAL SLOW IVP SCH (12:45)
[2021-12-18 15:45] LABS: Campy jejuni + coli by PCR Negative (Negative); STEC Shiga Toxin 1+2 Negative (Negative); Salmonella spp. by PCR Negative (Negative); Shigella spp + EIEC by PCR Negative (Negative)
[2021-12-18] MEDS: Insulin Glargine 30 UNITS/0.3 ML VIAL SC SCH (20:42)
[2021-12-18] MEDS: Gabapentin 400 MG CAP PO SCH ×2 (22:46→23:52)
[2021-12-19] MEDS: HumaLOG 300 UNITS/3 ML VIAL SC PRN ×2 (05:31→12:00)
[2021-12-19] MEDS: traMADol HCl 50 MG TAB PO SCH (08:00)
[2021-12-19] MEDS: tiZANidine HCl 4 MG TAB PO SCH (08:01)
[2021-12-19] MEDS: Polyethylene Glycol 3350 17 GM Packet PO SCH (08:02)
[2021-12-19 12:43] VITALS: BP 135/83; TEMP 97.9
[2021-12-27 23:36] LABS: 5 HIAA,Urine 1.6 mg/L (Undefined); 5 HIAA-24H Urine 3.6 mg/24 hr (0.0-14.9)
== END 2021-12-19 13:16 | disposition home or self-care (01) | DRG 74 ==
LOC: SURG A 01:36 → OBSVTOIN 12-18 12:34
PROVIDERS: ADMIT Internal Medicine; ATTEND Internal Medicine
PROC: 0DJ08ZZ Inspection of Upper Intestinal Tract, Via Natural or Artificial Opening Endoscopic (ICD-10-PCS; principal; 2021-12-18)
PROC: 0DJD8ZZ Inspection of Lower Intestinal Tract, Via Natural or Artificial Opening Endoscopic (ICD-10-PCS; 2021-12-18)
DX: E11.40 Type 2 diabetes mellitus with diabetic neuropathy, unspecified (principal); E87.1 Hypo-osmolality and hyponatremia; Z68.42 Body mass index [BMI] 45.0-49.9, adult; R10.30 Lower abdominal pain, unspecified; Z20.822 Contact with and (suspected) exposure to COVID-19; E66.01 Morbid (severe) obesity due to excess calories; E11.65 Type 2 diabetes mellitus with hyperglycemia; Z88.2 Allergy status to sulfonamides; Z88.8 Allergy status to other drugs, medicaments and biological substances; Z88.1 Allergy status to other antibiotic agents; Z90.710 Acquired absence of both cervix and uterus; Z90.49 Acquired absence of other specified parts of digestive tract
CPT/HCPCS: 36415; 36416; 80048; 80400; 83036; 83497; 83630; 85025; 87324; 87449; 87505; 96365; 96375; 96376; G0378; J1815; J2270; J2543; J2704; J3490; J7050; U0002

== ENCOUNTER 2022-08-19 17:33 | Emergency (ER) | payer OTHER ==
[2022-08-19] MEDS ORDERED: Morphine 4 MG/ML VIAL ONE ×3 (18:03→21:33)
[2022-08-19 20:17] LABS: BHCG - Serum Negative (NEGATIVE); Pregs Control Background? CLEAR/WHITE (CLR/WHITE); Pregs Control Bar Appear? YES (CONTROL BAR)
[2022-08-19 20:24] LABS: #Basophils 0.1 thou/uL (0.0-0.2); #Eosinphils 0.2 thou/uL (0.0-0.7); #Lymphocytes 3.6 thou/uL (1.20-3.40); #Monocytes 0.8 thou/uL (0.11-0.59); #Neutrophils 5.5 thou/uL (1.40-6.50); %Basophils 1.2 % (0.0-1.0); %Eosinophils 2.3 % (0.0-10.0); %Lymphocytes 35.5 % (21.0-51.0); %Monocytes 7.3 % (0.0-10.0); %Neutrophils 53.8 % (42.0-75.0); Hemoglobin 14.3 g/dL (12.0-16.0); Mean Corpuscular Hemoglobin 32.4 pg (27.0-31.0); Mean Corpuscular Volume 95.4 fl (78.0-98.0); Mean Platelet Volume 8.9 fL (7.4-10.4); Platelet Count 259 10x3/uL (130-400); RBC Distribution Width 11.3 % (11.5-14.5); Red Blood Cell (RBC) Count 4.42 mill/uL (4.20-5.40); White Blood Cell (WBC) Count 10.2 10x3/uL (4.8-10.8)
[2022-08-19 20:31] LABS: ALT (SGPT) 33 U/L (8-55); AST (SGOT) 23 U/L (5-34); Alkaline Phosphatase 121 U/L (40-110); Anion Gap 16 mmol/L (10-20); BUN (Urea Nitrogen) 8 mg/dL (7.0-18.7); Bilirubin, Total 0.2 mg/dL (0.2-1.2); Calc. Creatinine Clearance 0 mL/min (70-130); Calcium 9.9 mg/dL (7.8-10.44); Carbon Dioxide 27 mmol/L (22-29); Chloride 100 mmol/L (98-107); Estimated GFR 97; Globulin 3.2 g/dL (2.4-3.5); Glucose 278 mg/dL (70-105); Lipase 40 U/L (8-78); Potassium 4.5 mmol/L (3.5-5.1); Protein, Total 7.2 g/dL (6.0-8.3); Sodium 138 mmol/L (136-145)
[2022-08-19 21:11] LABS: Bilirubin Negative (Negative); Blood, Urine Negative (Negative); Clarity Clear (Clear); Glucose, Urine (Dipstick) Greater than 1000 mg/dL (Negative); Ketone, Urine Negative (Negative); Leukocyte Negative Leu/uL (Negative); Nitrite Negative (Negative); Protein, Urine (Dipstick) Negative (Neg-Trace); Specific Gravity, Urine 1.033 (1.002-1.036); Urobilinogen Normal mg/dL (Less than 2)
== END 2022-08-19 21:41 | disposition home or self-care (01) ==
LOC: ERS 17:33
DX: R10.9 Unspecified abdominal pain (principal); I10 Essential (primary) hypertension; E11.9 Type 2 diabetes mellitus without complications; Z87.891 Personal history of nicotine dependence
CPT/HCPCS: 74176; 80053; 81003; 83690; 84703; 85025; 96361; 96374; 96376; J2270

== ENCOUNTER 2022-08-23 09:19 | Emergency (ER) | payer OTHER ==
[2022-08-23] MEDS ORDERED: Ketorolac Tromethamine 30 MG/ML VIAL ONE (10:55)
[2022-08-23] MEDS ORDERED: Dicyclomine 20 MG/2 ML VIAL ONE (10:55)
[2022-08-23 11:00] LABS: #Basophils 0.1 thou/uL (0.0-0.2); #Eosinphils 0.1 thou/uL (0.0-0.7); #Monocytes 0.9 thou/uL (0.11-0.59); #Neutrophils 10.2 thou/uL (1.40-6.50); %Basophils 0.5 % (0.0-1.0); %Eosinophils 0.7 % (0.0-10.0); %Lymphocytes 23.9 % (21.0-51.0); %Neutrophils 68.1 % (42.0-75.0); Hemoglobin 14.1 g/dL (12.0-16.0); Mean Corpuscular HGB CONC 31.7 g/dL (32.0-36.0); Mean Corpuscular Volume 94.7 fl (78.0-98.0); Mean Platelet Volume 10.4 fL (7.4-10.4); Platelet Count 284 10x3/uL (130-400); RBC Distribution Width 11.7 % (11.5-14.5)
[2022-08-23 11:09] LABS: Bacteria/HPF 2+ HPF (None Seen); Bilirubin Negative (Negative); Blood, Urine 3+ (Negative); Clarity Turbid (Clear); Glucose, Urine (Dipstick) Greater than 1000 mg/dL (Negative); Ketone, Urine Negative (Negative); Leukocyte 500 Leu/uL (Negative); Nitrite 2+ (Negative); Protein, Urine (Dipstick) 30 mg/dL (Neg-Trace); RBC/HPF Greater than 50 HPF (0-3); Specific Gravity, Urine 1.032 (1.002-1.036); Squamous Epithelial 0-3 HPF (0-3); Urobilinogen Normal mg/dL (Less than 2); WBC/HPF Greater than 50 HPF (0-3)
[2022-08-23 11:14] LABS: ALT (SGPT) 27 U/L (8-55); AST (SGOT) 23 U/L (5-34); Albumin 4.1 g/dL (3.5-5.0); Alkaline Phosphatase 106 U/L (40-110); Anion Gap 18 mmol/L (10-20); BUN (Urea Nitrogen) 14 mg/dL (7.0-18.7); Bilirubin, Total 0.2 mg/dL (0.2-1.2); Calc. Creatinine Clearance 0 mL/min (70-130); Carbon Dioxide 22 mmol/L (22-29); Chloride 99 mmol/L (98-107); Estimated GFR 90; Globulin 3.3 g/dL (2.4-3.5); Glucose 233 mg/dL (70-105); Lipase 52 U/L (8-78); Potassium 4.3 mmol/L (3.5-5.1); Protein, Total 7.4 g/dL (6.0-8.3); Sodium 135 mmol/L (136-145)
[2022-08-23] MEDS ORDERED: cefTRIAXone (ROCEPHIN) 1 GM VIAL ONE (12:15)
== END 2022-08-23 13:02 | disposition home or self-care (01) ==
LOC: ERS 09:19
DX: N39.0 Urinary tract infection, site not specified (principal); K92.1 Melena; I10 Essential (primary) hypertension; E11.9 Type 2 diabetes mellitus without complications; D72.829 Elevated white blood cell count, unspecified; Z87.891 Personal history of nicotine dependence
CPT/HCPCS: 74176; 80053; 81003; 81015; 83605; 83690; 85025; 96361; 96365; 96372; 96375; J0696; J1790; J1885

== ENCOUNTER 2023-01-01 21:09 | Emergency (ER) | payer OTHER, SELFPAY ==
[2023-01-01] MEDS ORDERED: Morphine 4 MG/ML VIAL ONE (21:44)
[2023-01-01] MEDS ORDERED: Ketorolac Tromethamine 30 MG/ML VIAL ONE (21:44)
[2023-01-01 21:56] LABS: Bacteria/HPF 3+ HPF (None Seen); Bilirubin Negative (Negative); Blood, Urine 2+ (Negative); CAUTI Indications for Culture Dysuria,urgency,freq; Clarity Turbid (Clear); Glucose, Urine (Dipstick) Greater than 1000 mg/dL (Negative); Ketone, Urine Negative (Negative); Leukocyte 500 Leu/uL (Negative); Nitrite Negative (Negative); Protein, Urine (Dipstick) 10 mg/dL (Neg-Trace); RBC/HPF 21-50 HPF (0-3); Specific Gravity, Urine 1.034 (1.002-1.036); Squamous Epithelial 0-3 HPF (0-3); Urobilinogen Normal mg/dL (Less than 2); WBC/HPF Greater than 50 HPF (0-3); Yeast-Budding 1+ HPF (None Seen); pH, Urine 5.5 (5.0-9.0)
[2023-01-01 21:57] LABS: Urine Culture Reflex Yes Yes
[2023-01-01 22:26] LABS: #Basophils 0.1 thou/uL (0.0-0.2); #Eosinphils 0.1 thou/uL (0.0-0.7); #Monocytes 1.1 thou/uL (0.11-0.59); #Neutrophils 10.8 thou/uL (1.40-6.50); %Basophils 0.4 % (0.0-1.0); %Eosinophils 0.7 % (0.0-10.0); %Lymphocytes 22.7 % (21.0-51.0); %Neutrophils 68.8 % (42.0-75.0); Hematocrit 43.8 % (36.0-47.0); Hemoglobin 14.8 g/dL (12.0-16.0); Mean Corpuscular HGB CONC 33.8 g/dL (32.0-36.0); Mean Corpuscular Volume 91.8 fl (78.0-98.0); Mean Platelet Volume 10.1 fL (7.4-10.4); Platelet Count 355 10x3/uL (130-400); RBC Distribution Width 12.3 % (11.5-14.5); Red Blood Cell (RBC) Count 4.77 mill/uL (4.20-5.40); White Blood Cell (WBC) Count 15.6 10x3/uL (4.8-10.8)
[2023-01-01 22:32] LABS: BHCG - Serum Negative (NEGATIVE); Pregs Control Background? CLEAR/WHITE (CLR/WHITE); Pregs Control Bar Appear? YES (CONTROL BAR)
[2023-01-02] MEDS ORDERED: cefTRIAXone (ROCEPHIN) 1 GM VIAL ONE (00:01)
[2023-01-02] MEDS ORDERED: HYDROcodone/Acetaminophen 5/325 mg Tablet ONE (01:04)
== END 2023-01-02 01:07 | disposition home or self-care (01) ==
LOC: ERS 21:09
DX: N10 Acute pyelonephritis (principal); E11.9 Type 2 diabetes mellitus without complications; I10 Essential (primary) hypertension; Z87.891 Personal history of nicotine dependence
CPT/HCPCS: 74176; 81001; 84703; 85025; 87077; 87086; 87186; 96361; 96365; 96375; J0696; J1885; J2270

== ENCOUNTER 2023-05-01 12:52 | Inpatient (IN) | payer BC ==
[2023-05-01 15:03] VITALS: BMI 50.8
[2023-05-01] MEDS ORDERED: Morphine 2 MG/ML VIAL SLOW IVP SCH (16:00)
[2023-05-01] MEDS ORDERED: Ondansetron ODT 4 MG TAB PO PRN (16:02)
[2023-05-01] MEDS ORDERED: HumaLOG 300 UNITS/3 ML VIAL SC PRN (16:02)
[2023-05-01] MEDS ORDERED: Acetaminophen 325 MG TAB PO PRN (16:02)
[2023-05-01] MEDS ORDERED: Dextrose 5% in Water 1,000 ML IV PRN (16:02)
[2023-05-01] MEDS ORDERED: Dextrose 50% Abboject 50 ML SYRINGE SLOW IVP PRN (16:02)
[2023-05-01] MEDS ORDERED: Glucagon 1 MG/ML KIT IM PRN (16:02)
[2023-05-01] MEDS ORDERED: Ondansetron PF 4 MG/2 ML Vial IVP PRN (16:02)
[2023-05-01] MEDS ORDERED: Hyoscyamine SL 0.125 MG TAB PO PRN (16:18)
[2023-05-01] MEDS: Ciprofloxacin Lactate/D5W 400 MG in Premix 1 BAG IVPB SCH (20:15)
[2023-05-01] MEDS: Morphine 2 MG/ML VIAL SLOW IVP PRN (20:16)
[2023-05-01] MEDS: metroNIDAZOLE 500 MG in Premix 1 BAG IVPB SCH (22:00)
[2023-05-02] MEDS: Morphine 2 MG/ML VIAL SLOW IVP PRN ×2 (00:25→06:34)
[2023-05-02 04:30] LABS: #Basophils 0.1 thou/uL (0.0-0.2); #Eosinphils 0.2 thou/uL (0.0-0.7); #Monocytes 0.6 thou/uL (0.11-0.59); #Neutrophils 3.8 thou/uL (1.40-6.50); %Basophils 0.6 % (0.0-1.0); %Eosinophils 2.1 % (0.0-10.0); %Lymphocytes 40.9 % (21.0-51.0); %Monocytes 7.4 % (0.0-10.0); %Neutrophils 48.2 % (42.0-75.0); Hemoglobin 13.3 g/dL (12.0-16.0); Mean Corpuscular HGB CONC 33.3 g/dL (32.0-36.0); Mean Corpuscular Hemoglobin 30.8 pg (27.0-31.0); Mean Corpuscular Volume 92.6 fl (78.0-98.0); Mean Platelet Volume 10.1 fL (7.4-10.4); Platelet Count 232 10x3/uL (130-400); RBC Distribution Width 11.5 % (11.5-14.5); Red Blood Cell (RBC) Count 4.32 mill/uL (4.20-5.40); White Blood Cell (WBC) Count 7.9 10x3/uL (4.8-10.8)
[2023-05-02 04:43] LABS: Anion Gap 12 mmol/L (10-20); BUN (Urea Nitrogen) 10 mg/dL (7.0-18.7); Calc. Creatinine Clearance 210 mL/min (70-130); Calcium 8.6 mg/dL (7.8-10.44); Carbon Dioxide 23 mmol/L (22-29); Chloride 108 mmol/L (98-107); Estimated GFR 114; Glucose 162 mg/dL (70-105); Potassium 3.9 mmol/L (3.5-5.1); Sodium 139 mmol/L (136-145)
[2023-05-02 05:31] LABS: ALT (SGPT) 29 U/L (8-55); AST (SGOT) 22 U/L (5-34); Albumin 3.6 g/dL (3.5-5.0); Alkaline Phosphatase 65 U/L (40-110); Bilirubin, Direct 0.2 mg/dL (0.1-0.3); Bilirubin, Total 0.5 mg/dL (0.2-1.2); Protein, Total 6.2 g/dL (6.0-8.3)
[2023-05-02] MEDS: metroNIDAZOLE 500 MG in Premix 1 BAG IVPB SCH (06:15)
[2023-05-02] MEDS: Enoxaparin 40 MG (0.4 mL) SYRINGE SC SCH (07:51)
[2023-05-02] MEDS: Ciprofloxacin Lactate/D5W 400 MG in Premix 1 BAG IVPB SCH (07:51)
[2023-05-02] MEDS ORDERED: traMADol HCl 50 MG TAB PO PRN (09:18)
[2023-05-02] MEDS: HYDROcodone/Acetaminophen 5/325 mg Tablet PO PRN ×3 (13:35→20:49)
[2023-05-02] MEDS: metroNIDAZOLE 500 MG TAB PO SCH ×2 (13:38→20:46)
[2023-05-02] MEDS: HumaLOG 300 UNITS/3 ML VIAL SC PRN (16:55)
[2023-05-02 18:39] LABS: Pregnancy Test - Urine (BHCG) Negative (Negative); Pregu Control Background? CLEAR/WHITE (CLR/WHITE); Pregu Control Bar Appear? YES (CONTROL BAR)
[2023-05-02] MEDS: Ciprofloxacin 500 MG TAB PO SCH (20:46)
[2023-05-02] MEDS: Gabapentin 300 MG CAP PO SCH (20:46)
[2023-05-03] MEDS: HumaLOG 300 UNITS/3 ML VIAL SC PRN (05:49)
[2023-05-03] MEDS: Ciprofloxacin 500 MG TAB PO SCH (05:49)
[2023-05-03] MEDS: HYDROcodone/Acetaminophen 5/325 mg Tablet PO PRN ×2 (05:49→09:39)
[2023-05-03 07:59] LABS: #Eosinphils 0.1 thou/uL (0.0-0.7); #Monocytes 0.5 thou/uL (0.11-0.59); #Neutrophils 3.9 thou/uL (1.40-6.50); %Basophils 0.5 % (0.0-1.0); %Eosinophils 1.5 % (0.0-10.0); %Lymphocytes 29.2 % (21.0-51.0); %Neutrophils 60.2 % (42.0-75.0); Hematocrit 40.9 % (36.0-47.0); Hemoglobin 14.1 g/dL (12.0-16.0); Mean Corpuscular HGB CONC 34.5 g/dL (32.0-36.0); Mean Corpuscular Hemoglobin 31.3 pg (27.0-31.0); Mean Corpuscular Volume 90.7 fl (78.0-98.0); Mean Platelet Volume 9.5 fL (7.4-10.4); Platelet Count 225 10x3/uL (130-400); RBC Distribution Width 11.7 % (11.5-14.5); Red Blood Cell (RBC) Count 4.51 mill/uL (4.20-5.40); White Blood Cell (WBC) Count 6.5 10x3/uL (4.8-10.8)
[2023-05-03 08:27] LABS: Anion Gap 13 mmol/L (10-20); BUN (Urea Nitrogen) 12 mg/dL (7.0-18.7); Calc. Creatinine Clearance 195 mL/min (70-130); Calcium 8.8 mg/dL (7.8-10.44); Carbon Dioxide 23 mmol/L (22-29); Chloride 105 mmol/L (98-107); Estimated GFR 109; Glucose 172 mg/dL (70-105); Potassium 4.1 mmol/L (3.5-5.1); Sodium 137 mmol/L (136-145)
[2023-05-03] MEDS: Enoxaparin 40 MG (0.4 mL) SYRINGE SC SCH (08:28)
[2023-05-03] MEDS: metroNIDAZOLE 500 MG TAB PO SCH (08:28)
[2023-05-03] MEDS: Gabapentin 300 MG CAP PO SCH (08:29)
[2023-05-03 09:31] VITALS: BP 150/106; TEMP 98
[2023-05-04] MEDS ORDERED: FLU VACC QS2023-24(6MOS UP)/PF 60 MCG/0.5 ML SYRINGE IM ONE (09:00)
== END 2023-05-03 11:50 | disposition home or self-care (01) | DRG 392 ==
LOC: T4-A 14:41 → OBSVTOIN 16:02
PROVIDERS: ADMIT Internal Medicine; ATTEND Internal Medicine
DX: K57.32 Diverticulitis of large intestine without perforation or abscess without bleeding (principal); Z68.43 Body mass index [BMI] 50.0-59.9, adult; I10 Essential (primary) hypertension; G89.29 Other chronic pain; E66.01 Morbid (severe) obesity due to excess calories; E11.65 Type 2 diabetes mellitus with hyperglycemia; Z88.8 Allergy status to other drugs, medicaments and biological substances; Z88.1 Allergy status to other antibiotic agents; Z88.2 Allergy status to sulfonamides; Z91.041 Radiographic dye allergy status; Z91.018 Allergy to other foods; Z90.49 Acquired absence of other specified parts of digestive tract; Z98.890 Other specified postprocedural states; Z91.09 Other allergy status, other than to drugs and biological substances; Z79.899 Other long term (current) drug therapy; Z79.4 Long term (current) use of insulin
CPT/HCPCS: 36415; 36416; 80048; 80076; 81025; 85025; J0744; J1650; J1815; J2272

== ENCOUNTER 2023-06-07 20:21 | Inpatient (IN) | payer MEDICAID ==
[2023-06-07] MEDS ORDERED: Acetaminophen 325 MG TAB PO PRN (22:06)
[2023-06-07] MEDS ORDERED: Ondansetron PF 4 MG/2 ML Vial IVP PRN (22:06)
[2023-06-07] MEDS: Morphine 2 MG/ML VIAL SLOW IVP SCH (23:07)
[2023-06-08] VITALS: BMI 47.5
[2023-06-08] MEDS ORDERED: Morphine 4 MG/ML VIAL SLOW IVP PRN
[2023-06-08] MEDS: traMADol HCl 50 MG TAB PO PRN (00:32)
[2023-06-08] MEDS: Gabapentin 300 MG CAP PO SCH (00:33)
[2023-06-08] MEDS: Piperacillin/Tazobactam 3.375 GM in Sodium Chloride 0.9% 100 ML IVPB SCH (00:34)
[2023-06-08] MEDS: Morphine 4 MG/ML VIAL SLOW IVP PRN (02:57)
[2023-06-08 05:23] LABS: #Eosinphils 0.1 thou/uL (0.0-0.7); #Monocytes 0.6 thou/uL (0.11-0.59); #Neutrophils 3.2 thou/uL (1.40-6.50); %Basophils 0.6 % (0.0-1.0); %Eosinophils 1.9 % (0.0-10.0); %Lymphocytes 44.5 % (21.0-51.0); %Monocytes 7.6 % (0.0-10.0); %Neutrophils 44.8 % (42.0-75.0); Hematocrit 35.6 % (36.0-47.0); Hemoglobin 11.8 g/dL (12.0-16.0); Mean Corpuscular HGB CONC 33.1 g/dL (32.0-36.0); Mean Corpuscular Hemoglobin 31.3 pg (27.0-31.0); Mean Corpuscular Volume 94.4 fl (78.0-98.0); Platelet Count 232 10x3/uL (130-400); RBC Distribution Width 12.1 % (11.5-14.5); Red Blood Cell (RBC) Count 3.77 mill/uL (4.20-5.40); White Blood Cell (WBC) Count 7.2 10x3/uL (4.8-10.8)
[2023-06-08 06:04] LABS: ALT (SGPT) 82 U/L (8-55); Albumin 3.7 g/dL (3.5-5.0); Alkaline Phosphatase 109 U/L (40-110); Anion Gap 11 mmol/L (10-20); BUN (Urea Nitrogen) 13 mg/dL (7.0-18.7); Calc. Creatinine Clearance 156 mL/min (70-130); Calcium 8.8 mg/dL (7.8-10.44); Carbon Dioxide 25 mmol/L (22-29); Chloride 104 mmol/L (98-107); Estimated GFR 83; Globulin 2.6 g/dL (2.4-3.5); Glucose 288 mg/dL (70-105); Potassium 4.2 mmol/L (3.5-5.1); Protein, Total 6.3 g/dL (6.0-8.3); Sodium 136 mmol/L (136-145)
[2023-06-08 06:09] LABS: Bilirubin, Total Less than 1.0 mg/dL (0.2-1.2)
[2023-06-08 06:11] LABS: AST (SGOT) 73 U/L (5-34)
[2023-06-08] MEDS ORDERED: Dextrose 50% Abboject 50 ML SYRINGE SLOW IVP PRN (06:51)
[2023-06-08] MEDS ORDERED: Dextrose 5% in Water 1,000 ML IV PRN (06:51)
[2023-06-08] MEDS ORDERED: Glucagon 1 MG/ML KIT IM PRN (06:51)
[2023-06-08] MEDS: HumaLOG 300 UNITS/3 ML VIAL SC PRN ×2 (08:51→20:21)
[2023-06-08] MEDS: Enoxaparin 40 MG (0.4 mL) SYRINGE SC SCH (08:52)
[2023-06-08] MEDS: diphenhydrAMINE 50 MG/ML VIAL IVP PRN (12:12)
[2023-06-08] MEDS: Ciprofloxacin Lactate/D5W 400 MG in Premix 1 BAG IVPB SCH (13:03)
[2023-06-08] MEDS: metroNIDAZOLE 500 MG in Premix 1 BAG IVPB SCH (14:34)
[2023-06-08] MEDS: Sodium Chloride 0.9% 1,000 ML IV SCH (19:31)
[2023-06-08] MEDS ORDERED: Metoclopramide HCl 10 MG (2 mL) VIAL IVP PRN (19:55)
[2023-06-08] MEDS: methylPREDNISolone Sod Succ/PF 125 MG/2 ML VIAL IVP SCH (20:20)
[2023-06-08] MEDS: Insulin Glargine 30 UNITS/0.3 ML VIAL SC SCH (20:21)
[2023-06-09] MEDS: Morphine 4 MG/ML VIAL SLOW IVP PRN (00:52)
[2023-06-09 07:11] LABS: #Monocytes 0.1 thou/uL (0.11-0.59); #Neutrophils 5.6 thou/uL (1.40-6.50); %Basophils 0.3 % (0.0-1.0); %Eosinophils 0.1 % (0.0-10.0); %Lymphocytes 17.1 % (21.0-51.0); %Neutrophils 79.4 % (42.0-75.0); Hematocrit 40.1 % (36.0-47.0); Hemoglobin 13.4 g/dL (12.0-16.0); Mean Corpuscular HGB CONC 33.4 g/dL (32.0-36.0); Mean Corpuscular Hemoglobin 31.4 pg (27.0-31.0); Mean Corpuscular Volume 93.9 fl (78.0-98.0); Mean Platelet Volume 10.8 fL (7.4-10.4); Platelet Count 153 10x3/uL (130-400); RBC Distribution Width 11.8 % (11.5-14.5); Red Blood Cell (RBC) Count 4.27 mill/uL (4.20-5.40)
[2023-06-09 07:35] LABS: Albumin 3.8 g/dL (3.5-5.0)
[2023-06-09 07:36] LABS: Chloride 106 mmol/L (98-107); Potassium 4.6 mmol/L (3.5-5.1); Sodium 136 mmol/L (136-145)
[2023-06-09 07:37] LABS: Calcium 9.3 mg/dL (7.8-10.44); Glucose 269 mg/dL (70-105)
[2023-06-09 07:38] LABS: Globulin 3.5 g/dL (2.4-3.5); Protein, Total 7.3 g/dL (6.0-8.3)
[2023-06-09 07:39] LABS: Anion Gap 16 mmol/L (10-20); Bilirubin, Total 0.4 mg/dL (0.2-1.2); Carbon Dioxide 19 mmol/L (22-29)
[2023-06-09 07:40] LABS: Alkaline Phosphatase 131 U/L (40-110)
[2023-06-09 07:41] LABS: Calc. Creatinine Clearance 180 mL/min (70-130); Estimated GFR 99
[2023-06-09 07:42] LABS: BUN (Urea Nitrogen) 10 mg/dL (7.0-18.7)
[2023-06-09 07:43] LABS: ALT (SGPT) 135 U/L (8-55); AST (SGOT) 80 U/L (5-34)
[2023-06-09] MEDS ORDERED: Polyethylene Glycol 3350 17 GM Packet PO PRN (10:36)
[2023-06-09] MEDS: Senokot S 8.6-50 MG TAB PO SCH ×2 (11:05→20:50)
[2023-06-09] MEDS: Polyethylene Glycol 3350 17 GM Packet PO SCH (11:05)
[2023-06-10] MEDS: Morphine 4 MG/ML VIAL SLOW IVP PRN (01:44)
[2023-06-10 07:00] LABS: #Eosinphils 0.1 thou/uL (0.0-0.7); #Monocytes 0.6 thou/uL (0.11-0.59); #Neutrophils 5.2 thou/uL (1.40-6.50); %Basophils 0.3 % (0.0-1.0); %Eosinophils 0.7 % (0.0-10.0); %Lymphocytes 38.3 % (21.0-51.0); %Monocytes 6.1 % (0.0-10.0); %Neutrophils 53.9 % (42.0-75.0); Hematocrit 33.1 % (36.0-47.0); Hemoglobin 11.1 g/dL (12.0-16.0); Mean Corpuscular HGB CONC 33.5 g/dL (32.0-36.0); Mean Corpuscular Hemoglobin 31.6 pg (27.0-31.0); Mean Corpuscular Volume 94.3 fl (78.0-98.0); Mean Platelet Volume 10.1 fL (7.4-10.4); Platelet Count 249 10x3/uL (130-400); RBC Distribution Width 12.3 % (11.5-14.5); Red Blood Cell (RBC) Count 3.51 mill/uL (4.20-5.40); White Blood Cell (WBC) Count 9.7 10x3/uL (4.8-10.8)
[2023-06-10 07:17] LABS: ALT (SGPT) 87 U/L (8-55); AST (SGOT) 27 U/L (5-34); Albumin 3.4 g/dL (3.5-5.0); Alkaline Phosphatase 95 U/L (40-110); Anion Gap 10 mmol/L (10-20); BUN (Urea Nitrogen) 11 mg/dL (7.0-18.7); Bilirubin, Total 0.2 mg/dL (0.2-1.2); Calc. Creatinine Clearance 180 mL/min (70-130); Calcium 8.3 mg/dL (7.8-10.44); Carbon Dioxide 27 mmol/L (22-29); Chloride 106 mmol/L (98-107); Estimated GFR 99; Globulin 2.6 g/dL (2.4-3.5); Glucose 288 mg/dL (70-105); Potassium 3.5 mmol/L (3.5-5.1); Sodium 139 mmol/L (136-145)
[2023-06-10] MEDS: Insulin Glargine 30 UNITS/0.3 ML VIAL SC SCH (20:47)
[2023-06-11] MEDS: Gabapentin 400 MG CAP PO SCH (20:37)
[2023-06-12 05:32] LABS: #Basophils 0.1 thou/uL (0.0-0.2); #Eosinphils 0.1 thou/uL (0.0-0.7); #Monocytes 0.7 thou/uL (0.11-0.59); #Neutrophils 5.3 thou/uL (1.40-6.50); %Basophils 0.7 % (0.0-1.0); %Eosinophils 1.2 % (0.0-10.0); %Lymphocytes 31.9 % (21.0-51.0); %Monocytes 7.2 % (0.0-10.0); %Neutrophils 57.9 % (42.0-75.0); Hematocrit 35.7 % (36.0-47.0); Hemoglobin 11.8 g/dL (12.0-16.0); Mean Corpuscular HGB CONC 33.1 g/dL (32.0-36.0); Mean Corpuscular Hemoglobin 31.5 pg (27.0-31.0); Mean Corpuscular Volume 95.2 fl (78.0-98.0); Mean Platelet Volume 9.6 fL (7.4-10.4); Platelet Count 252 10x3/uL (130-400); RBC Distribution Width 12.3 % (11.5-14.5); Red Blood Cell (RBC) Count 3.75 mill/uL (4.20-5.40); White Blood Cell (WBC) Count 9.2 10x3/uL (4.8-10.8)
[2023-06-12 06:00] LABS: Anion Gap 11 mmol/L (10-20); BUN (Urea Nitrogen) 11 mg/dL (7.0-18.7); Calc. Creatinine Clearance 187 mL/min (70-130); Carbon Dioxide 25 mmol/L (22-29); Chloride 104 mmol/L (98-107); Estimated GFR 104; Glucose 210 mg/dL (70-105); Potassium 3.8 mmol/L (3.5-5.1); Sodium 136 mmol/L (136-145)
[2023-06-12] MEDS: Gabapentin 300 MG CAP PO SCH (08:29)
[2023-06-12 08:59] VITALS: BP 149/83; TEMP 98.2
[2023-06-12] MEDS: Amlodipine 5 MG TAB PO SCH (09:48)
== END 2023-06-12 11:46 | disposition home or self-care (01) | DRG 392 ==
LOC: MSONC 21:24
PROVIDERS: ADMIT Internal Medicine; ATTEND Internal Medicine
DX: K57.32 Diverticulitis of large intestine without perforation or abscess without bleeding (principal); Z68.42 Body mass index [BMI] 45.0-49.9, adult; E11.9 Type 2 diabetes mellitus without complications; G89.29 Other chronic pain; M54.9 Dorsalgia, unspecified; E11.65 Type 2 diabetes mellitus with hyperglycemia; E11.42 Type 2 diabetes mellitus with diabetic polyneuropathy; E66.01 Morbid (severe) obesity due to excess calories; Z79.84 Long term (current) use of oral hypoglycemic drugs; Z79.891 Long term (current) use of opiate analgesic; Z79.899 Other long term (current) drug therapy; Z87.891 Personal history of nicotine dependence; Z90.49 Acquired absence of other specified parts of digestive tract; Z90.710 Acquired absence of both cervix and uterus
CPT/HCPCS: 36415; 36416; 80048; 80053; 85025; J0744; J1200; J1650; J1815; J2270; J2272; J2543; J2930; J3490; J7050